=== PATIENT | female | born 1955 | race American Indian/Alaskan Native ===

== ENCOUNTER 2017-07-26 18:43 | Observation (INO) | payer OTHER ==
[2017-07-26] MEDS ORDERED: Oxycodone/Acetaminophen 5/325 mg Tab PO STA (20:02)
[2017-07-26] MEDS ORDERED: Oxycodone/Acetaminophen 5/325 mg Tab ONE (20:13)
--- NOTE | 2017-07-26 21:17 | CT ---
EXAM: CT Head Without Intravenous Contrast CLINICAL HISTORY: 61 years old, female; Injury or trauma; Fall; Initial encounter; Concussion / head injury TECHNIQUE: Axial computed tomography images of the head/brain without intravenous contrast. All CT scans at this facility use one or more dose reduction techniques, viz.: automated exposure control; ma/kV adjustment per patient size (including targeted exams where dose is matched to indication; i.e. head); or iterative reconstruction technique. COMPARISON: No relevant prior studies available. FINDINGS: Brain: Mild cerebral atrophy. Moderate cerebral atrophy. No intracranial hemorrhage. No mass. Senescent calcification of basal ganglia. Minimal decreased attenuation within periventricular white matter. No edema. Ventricles: No hydrocephalus. Bones/joints: No acute fracture. Soft tissues: Unremarkable. Sinuses: Tiny right sphenoid retention cyst. Mastoid air cells: No mastoid effusion. Orbits: Unremarkable as visualized. IMPRESSION: 1. No intracranial hemorrhage. 2. Nonspecific white matter changes. 3. Incidental/non-acute findings are described above.
--- NOTE | 2017-07-26 21:22 | C.PDOC ---
History Of Present Illness <Miriam Bergman - Last Filed: 07/26/17 22:49> <Stanislaw Esparza - Last Filed: 07/29/17 09:07> 61 y/o female presents for evaluation of injuries s/p fall. States she was going from work and fell outside due to uneven sidewalk, onto her right side and hit her right shoulder, right hand, and the right side of the head. Now complaining of pain to these areas. States she felt disoriented after the fall but she can recount the details of the fall. No back pain, neck pain, or other injury. Patient denies any changes in sensation. (Miriam Bergman) - HPI History Per: Patient History/Exam Limitations: no limitations Injury Occurred (Timing): Just Before Arrival <Miriam Bergman - Last Filed: 07/26/17 22:49> <Stanislaw Esparza - Last Filed: 07/29/17 09:07> - HPI Time Seen by Provider: 07/26/17 19:45 Chief Complaint (Nursing): Trauma Past Medical History Reviewed: Historical Data, Nursing Documentation, Vital Signs - Medical History PMH: Diabetes, HTN, Seizures Other Surgeries: Bilateral breast surgery Family History: States: No Known Family Hx - Social History Hx Alcohol Use: No Hx Substance Use: No - Immunization History Hx Tetanus Toxoid Vaccination: Yes Hx Influenza Vaccination: No <Miriam Bergman - Last Filed: 07/26/17 22:49> Vital Signs: Last Vital Signs Temp 97.9 F 07/28/17 07:00 Pulse 53 L 07/28/17 07:47 Resp 18 07/28/17 07:00 BP 116/68 07/28/17 07:00 Pulse Ox 97 07/28/17 07:00 Review Of Systems Except As Marked, All Systems Reviewed And Found Negative. Eyes: Negative for: Vision Change Cardiovascular: Negative for: Chest Pain Respiratory: Negative for: Shortness of Breath Musculoskeletal: Positive for: Shoulder Pain (right), Hand Pain (right). Negative for: Neck Pain, Back Pain Neurological: Positive for: Confusion (after fall), Headache (and pain to right side of head). Negative for: Weakness, Numbness, Incoordination, Change in Speech <Miriam Bergman - Last Filed: 07/26/17 22:49> Physical Exam - Physical Exam Appears: Non-toxic, No Acute Distress Skin: Normal Color, Warm, Dry Head: Atraumatic, Normacephalic, No Abrasion, No Laceration Eye(s): bilateral: Normal Inspection, PERRL, EOMI Ear(s): Bilateral: Normal Oral Mucosa: Moist Neck: Normal ROM, Supple Chest: Symmetrical, No Tenderness Cardiovascular: Rhythm Regular, No Murmur Respiratory: Normal Breath Sounds, No Accessory Muscle Use Gastrointestinal/Abdominal: Soft, No Tenderness, No Distention Back: Normal Inspection, No Vertebral Tenderness, No Paraspinal Tenderness Extremity: Tenderness (to dorsum of right hand, especially 5th digit; also tender to right shoulder), Capillary Refill (is normal), No Deformity, No Swelling (or ecchymosis) Pulses: Left Radial: Normal, Right Radial: Normal Neurological/Psych: Oriented x3, Normal Speech, Normal Cranial Nerves, Normal Motor, Normal Sensation, No Other (neurological deficits) Gait: Steady <Miriam Bergman - Last Filed: 07/26/17 22:49> ED Course And Treatment O2 Sat by Pulse Oximetry: 99 (RA) Pulse Ox Interpretation: Normal - Other Rad x-ray right hand X-Ray: Interpreted by Me, Viewed By Me Interpretation: No fracture, no dislocation x-ray right shoulder X-Ray: Interpreted by Me, Viewed By Me Interpretation: No fracture, no dislocation - CT Scan/US CT head Other Rad Studies (CT/US): Read By Radiologist, Radiology Report Reviewed CT/US Interpretation: FINDINGS: Brain: Mild cerebral atrophy. Moderate cerebral atrophy. No intracranial. hemorrhage. No mass. Senescent calcification of basal ganglia. Minimal. decreased attenuation within periventricular white matter. No edema. Ventricles: No hydrocephalus. Bones/ joints: No acute fracture. Soft tissues: Unremarkable. Sinuses: Tiny right sphenoid retention cyst. Mastoid air cells: No mastoid effusion. Orbits: Unremarkable as visualized. . IMPRESSION: 1. No intracranial hemorrhage. 2. Nonspecific white matter changes. 3. Incidental/non-acute findings are described above. Progress Note: Pending x-rays and CT head. Given 1 tab Percocet in the ED <Miriam Bergman - Last Filed: 07/26/17 22:49> - Laboratory Results Result Diagrams: 07/27/17 07:50 07/27/17 07:50 <Stanislaw Esparza - Last Filed: 07/29/17 09:07> Medical Decision Making <Miriam Bergman - Last Filed: 07/26/17 22:49> <Stanislaw Esparza - Last Filed: 07/29/17 09:07> Medical Decision Making: Upon d/c patient found to be AMS, lethargic drooling. Labs and IVF ordered. Case was signed out to . (Miriam Bergman) pt endorsed to me pending labs after foudn ams. repeat ct added to exclude delayed bleed. labs urnemarkble. pt initially awake, but not oriented. currently orientd x 2. discussed with dr gunter. accepts obs for ams, suspect post concussive (Stanislaw Esparza) Disposition - Disposition Disposition Time: 22:16 <Miriam Bergman - Last Filed: 07/26/17 22:49> <Stanislaw Esparza - Last Filed: 07/29/17 09:07> - Disposition Disposition: HOSPITALIZED Condition: FAIR - Clinical Impression Clinical Impression: Hand contusion, Shoulder sprain, Minor head injury, Altered mental status Critical Care Time - PA / PROPERTY FIELD ADJUSTER / Resident Statement MD/DO has reviewed & agrees with the documentation as recorded. - Scribe Statement The provider has reviewed the documentation as recorded by the Scribe (Fern Ferguson) <Miriam Bergman - Last Filed: 07/26/17 22:49> <Stanislaw Esparza - Last Filed: 07/29/17 09:07> - Scribe Statement All medical record entries made by the Scribe were at my direction and personally dictated by me. I have reviewed the chart and agree that the record accurately reflects my personal performance of the history, physical exam, medical decision making, and the department course for this patient. I have also personally directed, reviewed, and agree with the discharge instructions and disposition. (Miriam Bergman) Physician Patient Turnover Patient Signed Over To: Stanislaw Esparza Handoff Comments: dispo pending <Miriam Bergman - Last Filed: 07/26/17 22:49> Addendum <Miriam Bergman - Last Filed: 07/26/17 22:49> <Stanislaw Esparza - Last Filed: 07/29/17 09:07> Addendum: 07/26/17 23:00 Patient endorsed to me by Miriam Bergman PA-C. Added on CT Head to rule out intracranial process. EKG: Sinus betsy at [address] Abd/Pelvis: FINDINGS: Brain: Mild cerebral atrophy. Moderate cerebellar atrophy. No intracranial hemorrhage. No mass. Senescent calcification of basal ganglia. Minimal decreased attenuation within periventricular white matter. No edema. Ventricles: No hydrocephalus. Bones/joints: No acute fracture. Soft tissues: Unremarkable. Sinuses: Tiny right sphenoid retention cyst. Mastoid air cells: No mastoid effusion. Orbits: Unremarkable as visualized. IMPRESSION: 1. No intracranial hemorrhage. 2. Nonspecific white matter changes. 3. Incidental/non-acute findings are described above. Thank you for allowing us to participate in the care of your patient. Dictated and Authenticated by: José Miguel Garcia MD 07/27/2017 12:27 AM Eastern Time ([place] & [place]) (Stanislaw Esparza)
[2017-07-26] MEDS ORDERED: Sodium Chloride 0.9% 1,000 ML IV STA (22:32)
[2017-07-26] MEDS ORDERED: Sodium Chloride 0.9% 1,000 ML ONE (23:11)
[2017-07-26 23:32] LABS: BASO % 1.2 % (0.0-2.0); EOS # 0.1 K/uL (0.0-0.7); EOS % 2.3 % (0.0-4.0); HEMOGLOBIN 12.7 g/dL (11.0-16.0); LYMPH % 49.5 % (20.0-40.0); MEAN CELL VOLUME 95.7 fL (81.0-99.0); MEAN CORPUSCULAR HEMOGLOBIN 32.9 pg (27.0-31.0); MEAN CORPUSCULAR HGB CONC 34.4 g/dL (33.0-37.0); MEAN PLATELET VOLUME 7.1 fL (7.2-11.7); MONO # 0.4 K/uL (0.0-0.8); MONO % 9.6 % (0.0-10.0); NEUT # 1.5 K/uL (1.8-7.0); NEUT % 37.4 % (50.0-75.0); RBC 3.87 Mil/uL (3.80-5.20); RED CELL DISTRIBUTION WIDTH 13.8 % (11.5-14.5); WHITE BLOOD COUNT 4.1 K/uL (4.8-10.8)
[2017-07-26 23:39] LABS: INR 1.1; PROTHROMBIN TIME 11.9 SECONDS (9.7-12.2)
[2017-07-26 23:45] LABS: ALB/GLOB RATIO 1.3 (1.0-2.1); ALBUMIN 4.2 g/dL (3.5-5.0); ALT/SGPT 27 U/L (9-52); AST/SGOT 26 U/L (14-36); BLOOD UREA NITROGEN 16 mg/dL (7-17); CALCIUM 9.1 mg/dl (8.6-10.4); GFR AFRICAN-AMERICAN > 60; GFR NON-AFRICAN AMERICAN > 60
[2017-07-26] MEDS ORDERED: Potassium Chloride 20 mEq ER Tab PO STA (23:46)
[2017-07-26] MEDS ORDERED: Potassium Chloride 20 mEq ER Tab PO ONE (23:51)
[2017-07-26 23:54] LABS: CK-MB 1.31 ng/mL (0.0-3.38)
--- NOTE | 2017-07-27 00:27 | CT ---
EXAM: CT Head Without Intravenous Contrast CLINICAL HISTORY: 61 years old, female; Pain; Headache and other: Fall; Patient HX: 07-26-17 images sent; Additional info: AMS trauma R/O delayed bleed TECHNIQUE: Axial computed tomography images of the head/brain without intravenous contrast. All CT scans at this facility use one or more dose reduction techniques, viz.: automated exposure control; ma/kV adjustment per patient size (including targeted exams where dose is matched to indication; i.e. head); or iterative reconstruction technique. Coronal and sagittal reformatted images were created and reviewed. COMPARISON: CT - HEAD W/O CONTRAST 2017-07-26 21:08 FINDINGS: Brain: Mild cerebral atrophy. Moderate cerebellar atrophy. No intracranial hemorrhage. No mass. Senescent calcification of basal ganglia. Minimal decreased attenuation within periventricular white matter. No edema. Ventricles: No hydrocephalus. Bones/joints: No acute fracture. Soft tissues: Unremarkable. Sinuses: Tiny right sphenoid retention cyst. Mastoid air cells: No mastoid effusion. Orbits: Unremarkable as visualized. IMPRESSION: 1. No intracranial hemorrhage. 2. Nonspecific white matter changes. 3. Incidental/non-acute findings are described above.
[2017-07-27] MEDS ORDERED: Glucagon Recombinant 1 mg Inj IM PRN (01:30)
[2017-07-27] MEDS ORDERED: Dextrose 50% SYRINGE Inj (50 ml) IV PRN (01:30)
--- NOTE | 2017-07-27 01:39 | CP.PCM.HP ---
<Alysha Garland - Last Filed: 07/27/17 01:51> History of Present Illness - History of Present Illness History of Present Illness: HPI: 61 year old female with past medical history of seizure disorder, HTN, DM type II presents to the ER s/p fall. Patient states she was walking to the bus stop after work when she hit her foot on the uneven pavement and she fell facing forward. She states she did hit her head and shoulder. She states she does not recall the exact way that she fell. She states she did not lose consciousness but did feel groggy. She denies feeling lightheaded, dizzy, change of vision or change in balance at the time of the fall. She states she took a taxi to the ER because someone told her there are no ambulance to the hospital. She states this has happened before about 2 weeks ago as she was again walking to the bus stop and tripped on the uneven pavement but at that time she did not hit her head. She states she currently has a headache and right shoulder pain. She denies chest pain, palpitations, dizziness, nausea or vomiting. 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 Currently denies alcohol and illicit drug use. Present on Admission - Present on Admission Any Indicators Present on Admission: No Review of Systems - Constitutional Constitutional: Headache. absent: Chills, Fever - EENT Eyes: absent: Change in Vision Ears: absent: Dizziness - Cardiovascular Cardiovascular: absent: Chest Pain, Dyspnea - Respiratory Respiratory: absent: Dyspnea - Gastrointestinal Gastrointestinal: absent: Constipation, Diarrhea, Nausea, Vomiting - Genitourinary Genitourinary: absent: Dysuria - Musculoskeletal Musculoskeletal: Other (right shoulder pain ) Past Patient History - Past Social History Smoking Status: Never Smoked - CARDIAC Hx Hypertension: Yes - NEUROLOGICAL Hx Seizures: Yes - ENDOCRINE/METABOLIC Hx Diabetes Mellitus Type 1: Yes Hx Diabetes Mellitus Type 2: Yes - PSYCHIATRIC Hx Substance Use: No - SURGICAL HISTORY Other/Comment: BL BREAST SURGERY Meds Home Medications: Home Medication List Medication Instructions Recorded Confirmed Type traMADol [Ultram] 50 mg PO Q6 #20 tab 07/26/17 Rx Allergies/Adverse Reactions: Allergies Allergy/AdvReac Type Severity Reaction Status Date / Time Penicillins Allergy SHORTNESS Verified 07/26/17 20:00 OF BREATH Physical Exam - Constitutional Appears: No Acute Distress Additional comments: Patient appears to be groggy. She has to pause and think after each question that was asked. - Head Exam Head Exam: ATRAUMATIC, NORMAL INSPECTION - Eye Exam Eye Exam: EOMI, Normal appearance - ENT Exam ENT Exam: Mucous Membranes Dry - Respiratory Exam Respiratory Exam: Clear to Auscultation Bilateral, NORMAL BREATHING PATTERN - Cardiovascular Exam Cardiovascular Exam: REGULAR RHYTHM, +S1, +S2. absent: JVD, RRR - GI/Abdominal Exam GI & Abdominal Exam: Normal Bowel Sounds, Soft. absent: Distended, Firm, Tenderness - Extremities Exam Extremities exam: Positive for: normal inspection, pedal pulses present. Negative for: pedal edema, tenderness Additional comments: Right 5th digit tenderness - Expanded Upper Extremities Exam Right Shoulder exam: tenderness. absent: abrasion, erythema, full ROM (decreased range of motion ), laceration, swelling - Neurological Exam Neurological exam: Alert, CN II-XII Intact, Oriented x3 - Expanded Neurological Exam Expanded Patient oriented to: person, place, time Sensory exam: Lower Extremity Light Touch: Normal, Upper Extremity Light Touch: Normal Neuro motor strength exam: Left Upper Extremity: 5, Right Upper Extremity: 5, Left Lower Extremity: 5, Right Lower Extremity: 4 Coma Scale Eye Opening: SPONTANEOUS Coma Scale Motor Response: OBEYS COMMANDS - Psychiatric Exam Psychiatric exam: Normal Affect, Normal Mood - Skin Skin Exam: Dry, Intact, Normal Color Results - Vital Signs Recent Vital Signs: Last Vital Signs Temp 98.8 F 07/27/17 00:38 Pulse 70 07/27/17 00:38 Resp 18 07/27/17 00:38 BP 146/90 07/27/17 00:38 Pulse Ox 100 07/27/17 00:38 - Labs Result Diagrams: 07/26/17 23:27 07/26/17 23:27 Labs: Laboratory Results - last 24 hr 07/26/17 07/26/17 07/26/17 22:30 23:27 23:27 WBC 4.1 L RBC 3.87 Hgb 12.7 Hct 37.0 MCV 95.7 MCH 32.9 H MCHC 34.4 RDW 13.8 Plt Count 284 MPV 7.1 L Neut % (Auto) 37.4 L Lymph % (Auto) 49.5 H Johnson % (Auto) 9.6 Eos % (Auto) 2.3 Baso % (Auto) 1.2 Neut # (Auto) 1.5 L Lymph # (Auto) 2.0 Johnson # (Auto) 0.4 Eos # (Auto) 0.1 Baso # (Auto) 0.0 PT INR APTT Sodium 140 Potassium 3.2 L Chloride 97 L Carbon Dioxide 28 Anion Gap 18 BUN 16 Creatinine 0.6 L Est GFR ( Amer) > 60 Est GFR (Non-Af Amer) > 60 POC Glucose (mg/dL) 96 Random Glucose 93 Calcium 9.1 Total Bilirubin 0.3 AST 26 ALT 27 Alkaline Phosphatase 124 Total Creatine Kinase 102 CK-MB (Mass) 1.31 Troponin I < 0.0120 Total Protein 7.4 Albumin 4.2 Globulin 3.2 Albumin/Globulin Ratio 1.3 07/26/17 23:27 WBC RBC Hgb Hct MCV MCH MCHC RDW Plt Count MPV Neut % (Auto) Lymph % (Auto) Johnson % (Auto) Eos % (Auto) Baso % (Auto) Neut # (Auto) Lymph # (Auto) Johnson # (Auto) Eos # (Auto) Baso # (Auto) PT 11.9 INR 1.1 APTT 27 Sodium Potassium Chloride Carbon Dioxide Anion Gap BUN Creatinine Est GFR ( Amer) Est GFR (Non-Af Amer) POC Glucose (mg/dL) Random Glucose Calcium Total Bilirubin AST ALT Alkaline Phosphatase Total Creatine Kinase CK-MB (Mass) Troponin I Total Protein Albumin Globulin Albumin/Globulin Ratio Assessment & Plan - Assessment and Plan (Free Text) Assessment: 1.) Near Syncope s/p fall - Head CT:No intracranial hemorrhage. Nonspecific white matter changes. Incidental/non-acute findings are described above. - EKG: Sinus Bradycardia - Trop Negative - f/u Brain MRI w/o contrast - f/u UDS - Neuro checks - Neuro Consult: Dr. Calderon --> help appreciated 2.) History of Seizure Disorder - f/u Phenytoin Level - Confirm dosage of patient's home medication - Phenytoin - Neuro Consult: Dr. Calderon --> help appreciated 3.) Leukopenia - WBC 4.1 - f/u HIV - f/u Hep Panel 4.) Right Shoulder Tenderness - f/u x-ray Shoulder xray - PT/OT 5.) Right 5th Digit Tenderness - f/u Hand xray - PT/OT 6.) History of HTN - Confirm dosage of patient's home medication - Benazepril - f/u TSH, free T4 7.) History of DM Type II - Accuchecks - ISS - Hypoglycemia Protocol - f/u hA1c - f/u Lipid Panel 8.) Prophylaxis - Neurochecks - SCDs - PT/OT eval and treat Case Discussed with Dr. Anushka Garland PGY-1 <Sudhakar Reveles - Last Filed: 07/27/17 06:33> Results - Vital Signs Recent Vital Signs: Last Vital Signs Temp 98.1 F 07/27/17 03:06 Pulse 74 07/27/17 03:06 Resp 20 07/27/17 03:06 BP 161/89 H 07/27/17 03:06 Pulse Ox 100 07/27/17 03:06 - Labs Result Diagrams: 07/26/17 23:27 07/26/17 23:27 Labs: Laboratory Results - last 24 hr 07/26/17 07/26/17 07/26/17 22:30 23:27 23:27 WBC 4.1 L RBC 3.87 Hgb 12.7 Hct 37.0 MCV 95.7 MCH 32.9 H MCHC 34.4 RDW 13.8 Plt Count 284 MPV 7.1 L Neut % (Auto) 37.4 L Lymph % (Auto) 49.5 H Johnson % (Auto) 9.6 Eos % (Auto) 2.3 Baso % (Auto) 1.2 Neut # (Auto) 1.5 L Lymph # (Auto) 2.0 Johnson # (Auto) 0.4 Eos # (Auto) 0.1 Baso # (Auto) 0.0 PT INR APTT Sodium 140 Potassium 3.2 L Chloride 97 L Carbon Dioxide 28 Anion Gap 18 BUN 16 Creatinine 0.6 L Est GFR ( Amer) > 60 Est GFR (Non-Af Amer) > 60 POC Glucose (mg/dL) 96 Random Glucose 93 Calcium 9.1 Total Bilirubin 0.3 AST 26 ALT 27 Alkaline Phosphatase 124 Total Creatine Kinase 102 CK-MB (Mass) 1.31 Troponin I < 0.0120 Total Protein 7.4 Albumin 4.2 Globulin 3.2 Albumin/Globulin Ratio 1.3 Urine Color Urine Clarity Urine pH Ur Specific Tinnie Urine Protein Urine Glucose (UA) Urine Ketones Urine Blood Urine Nitrate Urine Bilirubin Urine Urobilinogen Ur Leukocyte Esterase Urine WBC (Auto) Ur Squamous Epith Cells Urine Opiates Screen Urine Methadone Screen Ur Barbiturates Screen Ur Phencyclidine Scrn Ur Amphetamines Screen U Benzodiazepines Scrn U Oth Cocaine Metabols U Cannabinoids Screen 07/26/17 07/27/17 07/27/17 23:27 02:19 02:19 WBC RBC Hgb Hct MCV MCH MCHC RDW Plt Count MPV Neut % (Auto) Lymph % (Auto) Johnson % (Auto) Eos % (Auto) Baso % (Auto) Neut # (Auto) Lymph # (Auto) Johnson # (Auto) Eos # (Auto) Baso # (Auto) PT 11.9 INR 1.1 APTT 27 Sodium Potassium Chloride Carbon Dioxide Anion Gap BUN Creatinine Est GFR ( Amer) Est GFR (Non-Af Amer) POC Glucose (mg/dL) Random Glucose Calcium Total Bilirubin AST ALT Alkaline Phosphatase Total Creatine Kinase CK-MB (Mass) Troponin I Total Protein Albumin Globulin Albumin/Globulin Ratio Urine Color Straw Urine Clarity Clear Urine pH 6.0 Ur Specific Tinnie 1.012 Urine Protein Negative Urine Glucose (UA) Normal Urine Ketones Negative Urine Blood Negative Urine Nitrate Negative Urine Bilirubin Negative Urine Urobilinogen Normal Ur Leukocyte Esterase Neg Urine WBC (Auto) < 1 Ur Squamous Epith Cells 1 Urine Opiates Screen Positive H Urine Methadone Screen Negative Ur Barbiturates Screen Negative Ur Phencyclidine Scrn Negative Ur Amphetamines Screen Negative U Benzodiazepines Scrn Negative U Oth Cocaine Metabols Negative U Cannabinoids Screen Negative 07/27/17 06:01 WBC RBC Hgb Hct MCV MCH MCHC RDW Plt Count MPV Neut % (Auto) Lymph % (Auto) Johnson % (Auto) Eos % (Auto) Baso % (Auto) Neut # (Auto) Lymph # (Auto) Johnson # (Auto) Eos # (Auto) Baso # (Auto) PT INR APTT Sodium Potassium Chloride Carbon Dioxide Anion Gap BUN Creatinine Est GFR ( Amer) Est GFR (Non-Af Amer) POC Glucose (mg/dL) 83 Random Glucose Calcium Total Bilirubin AST ALT Alkaline Phosphatase Total Creatine Kinase CK-MB (Mass) Troponin I Total Protein Albumin Globulin Albumin/Globulin Ratio Urine Color Urine Clarity Urine pH Ur Specific Tinnie Urine Protein Urine Glucose (UA) Urine Ketones Urine Blood Urine Nitrate Urine Bilirubin Urine Urobilinogen Ur Leukocyte Esterase Urine WBC (Auto) Ur Squamous Epith Cells Urine Opiates Screen Urine Methadone Screen Ur Barbiturates Screen Ur Phencyclidine Scrn Ur Amphetamines Screen U Benzodiazepines Scrn U Oth Cocaine Metabols U Cannabinoids Screen Assessment & Plan - Date & Time Date: 07/27/17 (I have seen and examined the patient. I agree with the findings and plan of care as documented by Dr. Garland. Patient with change in mental status and pre syncope. CT head negative. Check MRI brain. Consult to neuro. Neurochecks. History of seizures. Check phenytoin level. Continue home meds. Fall precautions. Monitor for acute changes.) Time: 06:30 Attending/Attestation - Attestation I have personally seen and examined this patient.: Yes I have fully participated in the care of the patient.: Yes I have reviewed all pertinent clinical information: Yes
[2017-07-27 02:27] LABS: SQUAMOUS EPITHIAL 1 /hpf (0-5); URINE BILIRUBIN NEGATIVE (NEGATIVE); URINE BLOOD NEGATIVE (NEGATIVE); URINE CLARITY Clear (Clear); URINE COLOR Straw (YELLOW); URINE GLUCOSE (UA) NORMAL (Normal); URINE LEUKOCYTE ESTERASE NEG Leu/uL (Negative); URINE PROTEIN NEGATIVE (NEGATIVE); URINE UROBILINOGEN NORMAL mg/dL (0.2-1.0)
[2017-07-27 02:40] LABS: BARBITURATES, UR NEGATIVE (NEGATIVE); BENZODIAZEPINES, UR NEGATIVE (NEGATIVE); PHENCYCLIDINE, UR NEGATIVE (NEGATIVE)
[2017-07-27 02:41] LABS: OPIATES, UR POSITIVE (NEGATIVE)
[2017-07-27] MEDS ORDERED: Valproate 500 MG in Sodium Chloride 0.9% 100 ML IVPB ONE (07:00)
[2017-07-27 07:47] VITALS: RESP 18
[2017-07-27] MEDS: Magnesium Sulfate 1 gm in D5W 1 GM/100 ML BAG IVPB SCH ×2 (08:00→10:52)
[2017-07-27 08:11] LABS: BASO % 1.1 % (0.0-2.0); EOS # 0.1 K/uL (0.0-0.7); EOS % 1.8 % (0.0-4.0); LYMPH # 1.3 K/uL (1.0-4.3); LYMPH % 43.5 % (20.0-40.0); MEAN CELL VOLUME 95.8 fL (81.0-99.0); MEAN CORPUSCULAR HGB CONC 34.5 g/dL (33.0-37.0); MEAN PLATELET VOLUME 7.2 fL (7.2-11.7); MONO # 0.3 K/uL (0.0-0.8); MONO % 9.1 % (0.0-10.0); NEUT # 1.4 K/uL (1.8-7.0); NEUT % 44.5 % (50.0-75.0); NRBC % 0.1 % (0.0-2.0); RBC 3.63 Mil/uL (3.80-5.20); RED CELL DISTRIBUTION WIDTH 13.7 % (11.5-14.5)
--- NOTE | 2017-07-27 08:34 | RAD ---
PROCEDURE: Radiographs of the Right Shoulder HISTORY: fall COMPARISON: No prior. FINDINGS: BONES: No acute fracture. JOINTS: Glenohumeral acromioclavicular degenerative change. SOFT TISSUES: Normal. OTHER FINDINGS: None. IMPRESSION: No demonstrated fracture or dislocation.
--- NOTE | 2017-07-27 08:35 | RAD ---
PROCEDURE: Right Hand Radiographs. HISTORY: fall COMPARISON: None. FINDINGS: BONES: No acute fractured. JOINTS: Unremarkable. SOFT TISSUES: Normal. OTHER FINDINGS: None. IMPRESSION: No demonstrated fracture or dislocation.
[2017-07-27 08:38] LABS: ALB/GLOB RATIO 1.1 (1.0-2.1); ALBUMIN 3.4 g/dL (3.5-5.0); ALT/SGPT 20 U/L (9-52); AST/SGOT 22 U/L (14-36); BLOOD UREA NITROGEN 11 mg/dL (7-17); CALCIUM 8.8 mg/dl (8.6-10.4); GFR AFRICAN-AMERICAN > 60; GFR NON-AFRICAN AMERICAN > 60; HDL CHOLESTEROL 50 mg/dL (30-70)
[2017-07-27] MEDS: (Novolin R) Insulin Human Regular 100 units/ml vial SC SCH ×4 (08:44→21:49)
[2017-07-27 08:48] LABS: LDL CHOLESTEROL 99 mg/dL (0-129)
[2017-07-27 09:02] LABS: HEPATITIS B SURFACE AG Negative (NEGATIVE)
[2017-07-27 09:09] LABS: HEPATITIS A IGM NEGATIVE (NEGATIVE); HEPATITIS B CORE AB NEGATIVE (NEGATIVE)
[2017-07-27 09:19] LABS: HEPATITIS C ANTIBODY NEGATIVE (NEGATIVE)
[2017-07-27] MEDS ORDERED: Magnesium Sulfate 1 gm in D5W 1 GM/100 ML BAG IVPB SCH (11:00)
--- NOTE | 2017-07-27 14:37 | MRI ---
PROCEDURE: MRI BRAIN WITHOUT CONTRAST HISTORY: near syncope; s/p fall COMPARISON: None. TECHNIQUE: Multiplanar, multisequence MR images of the brain were obtained without intravenous contrast enhancement. FINDINGS: HEMORRHAGE: None DWI: No evidence of an acute or early subacute infarction. BRAIN PARENCHYMA: Diffuse cerebral atrophy and trace chronic microangiopathy are reiterated. There is a likely arachnoid cyst at the sella/inferior suprasellar cistern region. No mass is identified or suspicious extra-axial fluid collection in the midline brain and appears diffusely unremarkable nevertheless. Posterior fossa contents remain unremarkable including the brainstem. VENTRICLES: Unremarkable. No hydrocephalus. CRANIUM: Unremarkable. ORBITS: Grossly unremarkable. PARANASAL SINUSES/MASTOIDS: Clear VASCULAR SYSTEM: Skull base flow voids intact. OTHER FINDINGS: None. 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
--- NOTE | 2017-07-27 14:40 | MRI ---
PROCEDURE: Magnetic Resonance Angiography Brain HISTORY: seizure COMPARISON: None available. TECHNIQUE: 3D time of flight MR angiography of the intracranial arteries was performed. Rotating maximum intensity projection images were generated. FINDINGS: INTERNAL CAROTID ARTERIES: Unremarkable. The skull base, petrous, cavernous and supraclinoid segments are bilaterally widely patient. ANTERIOR CEREBRAL ARTERIES: Unremarkable. A1 and A2 segments are widely patent. Smaller distal branches unremarkable, as visualized. MIDDLE CEREBRAL ARTERIES: Unremarkable. M1 and M2 segments are widely patent. Perisylvian branches grossly symmetric. POSTERIOR CIRCULATION: Basilar Artery: Unremarkable. Distal Vertebral Arteries: Unremarkable. Posterior Cerebral Arteries: Unremarkable. Posterior Inferior Cerebellar Arteries: Unremarkable. ANEURYSM/ VASCULAR MALFORMATIONS: None. OTHER FINDINGS: None. IMPRESSION: Unremarkable MR angiography of the brain.
--- NOTE | 2017-07-27 16:17 | CP.PCM.CON ---
History of Present Illness - History of Present Illness History of Present Illness: Neurology Consultation Note: Mrs. Henderson is a 61-year-old woman with a past medical history of seizure disorder, HTN, DM type II presented to the ED yesterday after she had a mechanical fall, during which she hit her foot on uneven pavement, tripped and fell. There was no LOC, no abnormal movements, but she had headache ache should pain due to site of injury. CT and MRI of the brain did not show any concerning lesions. She was treated for headache. Neurology was consulted to assist with the management and care. Review of Systems - Review of Systems All systems: reviewed and no additional remarkable complaints except Past Patient History - Past Social History Smoking Status: Never Smoked - CARDIAC Hx Hypertension: Yes - NEUROLOGICAL Hx Seizures: Yes - ENDOCRINE/METABOLIC Hx Diabetes Mellitus Type 1: Yes Hx Diabetes Mellitus Type 2: Yes - PSYCHIATRIC Hx Substance Use: No - SURGICAL HISTORY Other/Comment: BL BREAST SURGERY Meds Home Medications: Home Medication List Medication Instructions Recorded Confirmed Type traMADol [Ultram] 50 mg PO Q6 #20 tab 07/26/17 Rx Allergies/Adverse Reactions: Allergies Allergy/AdvReac Type Severity Reaction Status Date / Time Penicillins Allergy SHORTNESS Verified 07/26/17 20:00 OF BREATH - Medications Medications: Current Medications Dextrose (Dextrose 50% Inj) 0 ml IV STAT PRN; Protocol PRN Reason: Hypoglycemia Protocol Dextrose (Glutose 15) 0 gm PO ONCE PRN; Protocol PRN Reason: Hypoglycemia Protocol Glucagon (Glucagen Diagnostic Kit) 0 mg IM STAT PRN; Protocol PRN Reason: Hypoglycemia Protocol Dextrose (Dextrose 5% In Water 1000 Ml) 1,000 mls @ 0 mls/hr IV .Q0M PRN; Protocol; Per Protocol PRN Reason: Hypoglycemia Protocol Insulin Human Regular (Novolin R) 0 unit SC ACHS [facility] PRN Reason: Protocol Last Admin: 07/27/17 11:51 Dose: Not Given Lisinopril (Zestril) 10 mg PO DAILY [facility] Last Admin: 07/27/17 10:50 Dose: 10 mg Physical Exam - Constitutional Appears: Well - Head Exam Head Exam: ATRAUMATIC, NORMAL INSPECTION, NORMOCEPHALIC - Eye Exam Eye Exam: Conjunctival injection - Respiratory Exam Respiratory Exam: Clear to Auscultation Bilateral, NORMAL BREATHING PATTERN - Cardiovascular Exam Cardiovascular Exam: REGULAR RHYTHM - GI/Abdominal Exam GI & Abdominal Exam: Normal Bowel Sounds, Soft. absent: Tenderness - Neurological Exam Neurological exam: Alert, CN II-XII Intact, Normal Gait, Oriented x3, Reflexes Normal Additional comments: Slightly somnolent, but AAOX3. Results - Vital Signs Recent Vital Signs: Last Vital Signs Temp 98.3 F 07/27/17 07:06 Pulse 66 07/27/17 12:22 Resp 18 07/27/17 07:06 BP 136/95 H 07/27/17 10:40 Pulse Ox 67 L 07/27/17 12:22 - Labs Result Diagrams: 07/27/17 07:50 07/27/17 07:50 Labs: Laboratory Results - last 24 hr 07/26/17 07/26/17 07/26/17 22:30 23:27 23:27 WBC 4.1 L RBC 3.87 Hgb 12.7 Hct 37.0 MCV 95.7 MCH 32.9 H MCHC 34.4 RDW 13.8 Plt Count 284 MPV 7.1 L Neut % (Auto) 37.4 L Lymph % (Auto) 49.5 H [place] % (Auto) 9.6 Eos % (Auto) 2.3 Baso % (Auto) 1.2 Neut # (Auto) 1.5 L Lymph # (Auto) 2.0 [place] # (Auto) 0.4 Eos # (Auto) 0.1 Baso # (Auto) 0.0 PT INR APTT Sodium 140 Potassium 3.2 L Chloride 97 L Carbon Dioxide 28 Anion Gap 18 BUN 16 Creatinine 0.6 L Est GFR ( Amer) > 60 Est GFR (Non-Af Amer) > 60 POC Glucose (mg/dL) 96 Random Glucose 93 Hemoglobin A1c Calcium 9.1 Phosphorus Magnesium Total Bilirubin 0.3 AST 26 ALT 27 Alkaline Phosphatase 124 Total Creatine Kinase 102 CK-MB (Mass) 1.31 Troponin I < 0.0120 Total Protein 7.4 Albumin 4.2 Globulin 3.2 Albumin/Globulin Ratio 1.3 Triglycerides Cholesterol LDL Cholesterol Direct HDL Cholesterol Free T4 TSH 3rd Generation Urine Color Urine Clarity Urine pH Ur Specific [place] Urine Protein Urine Glucose (UA) Urine Ketones Urine Blood Urine Nitrate Urine Bilirubin Urine Urobilinogen Ur Leukocyte Esterase Urine WBC (Auto) Ur Squamous Epith Cells Urine Opiates Screen Urine Methadone Screen Ur Barbiturates Screen Ur Phencyclidine Scrn Ur Amphetamines Screen U Benzodiazepines Scrn U Oth Cocaine Metabols U Cannabinoids Screen Hepatitis A IgM Ab Hep Bs Antigen Hep B Core IgM Ab Hepatitis C Antibody HIV 1&2 Antibody Screen 07/26/17 07/27/17 07/27/17 23:27 02:19 02:19 WBC RBC Hgb Hct MCV MCH MCHC RDW Plt Count MPV Neut % (Auto) Lymph % (Auto) [place] % (Auto) Eos % (Auto) Baso % (Auto) Neut # (Auto) Lymph # (Auto) [place] # (Auto) Eos # (Auto) Baso # (Auto) PT 11.9 INR 1.1 APTT 27 Sodium Potassium Chloride Carbon Dioxide Anion Gap BUN Creatinine Est GFR ( Amer) Est GFR (Non-Af Amer) POC Glucose (mg/dL) Random Glucose Hemoglobin A1c Calcium Phosphorus Magnesium Total Bilirubin AST ALT Alkaline Phosphatase Total Creatine Kinase CK-MB (Mass) Troponin I Total Protein Albumin Globulin Albumin/Globulin Ratio Triglycerides Cholesterol LDL Cholesterol Direct HDL Cholesterol Free T4 TSH 3rd Generation Urine Color Straw Urine Clarity Clear Urine pH 6.0 Ur Specific [place] 1.012 Urine Protein Negative Urine Glucose (UA) Normal Urine Ketones Negative Urine Blood Negative Urine Nitrate Negative Urine Bilirubin Negative Urine Urobilinogen Normal Ur Leukocyte Esterase Neg Urine WBC (Auto) < 1 Ur Squamous Epith Cells 1 Urine Opiates Screen Positive H Urine Methadone Screen Negative Ur Barbiturates Screen Negative Ur Phencyclidine Scrn Negative Ur Amphetamines Screen Negative U Benzodiazepines Scrn Negative U Oth Cocaine Metabols Negative U Cannabinoids Screen Negative Hepatitis A IgM Ab Hep Bs Antigen Hep B Core IgM Ab Hepatitis C Antibody HIV 1&2 Antibody Screen 07/27/17 07/27/17 07/27/17 06:01 07:50 07:50 WBC 3.0 L RBC 3.63 L Hgb 12.0 Hct 34.8 MCV 95.8 MCH 33.0 H MCHC 34.5 RDW 13.7 Plt Count 293 MPV 7.2 Neut % (Auto) 44.5 L Lymph % (Auto) 43.5 H [place] % (Auto) 9.1 Eos % (Auto) 1.8 Baso % (Auto) 1.1 Neut # (Auto) 1.4 L Lymph # (Auto) 1.3 [place] # (Auto) 0.3 Eos # (Auto) 0.1 Baso # (Auto) 0.0 PT INR APTT Sodium 139 Potassium 3.7 Chloride 105 Carbon Dioxide 26 Anion Gap 13 BUN 11 Creatinine 0.5 L Est GFR ( Amer) > 60 Est GFR (Non-Af Amer) > 60 POC Glucose (mg/dL) 83 Random Glucose 88 Hemoglobin A1c Calcium 8.8 Phosphorus 3.5 Magnesium 1.9 Total Bilirubin 0.3 AST 22 ALT 20 Alkaline Phosphatase 111 Total Creatine Kinase CK-MB (Mass) Troponin I Total Protein 6.4 Albumin 3.4 L Globulin 3.0 Albumin/Globulin Ratio 1.1 Triglycerides 50 Cholesterol 182 LDL Cholesterol Direct 99 HDL Cholesterol 50 Free T4 TSH 3rd Generation 0.35 L Urine Color Urine Clarity Urine pH Ur Specific [place] Urine Protein Urine Glucose (UA) Urine Ketones Urine Blood Urine Nitrate Urine Bilirubin Urine Urobilinogen Ur Leukocyte Esterase Urine WBC (Auto) Ur Squamous Epith Cells Urine Opiates Screen Urine Methadone Screen Ur Barbiturates Screen Ur Phencyclidine Scrn Ur Amphetamines Screen U Benzodiazepines Scrn U Oth Cocaine Metabols U Cannabinoids Screen Hepatitis A IgM Ab Hep Bs Antigen Hep B Core IgM Ab Hepatitis C Antibody HIV 1&2 Antibody Screen 07/27/17 07/27/17 07/27/17 07:50 07:50 07:50 WBC RBC Hgb Hct MCV MCH MCHC RDW Plt Count MPV Neut % (Auto) Lymph % (Auto) [place] % (Auto) Eos % (Auto) Baso % (Auto) Neut # (Auto) Lymph # (Auto) [place] # (Auto) Eos # (Auto) Baso # (Auto) PT INR APTT Sodium Potassium Chloride Carbon Dioxide Anion Gap BUN Creatinine Est GFR ( Amer) Est GFR (Non-Af Amer) POC Glucose (mg/dL) Random Glucose Hemoglobin A1c 5.9 Calcium Phosphorus Magnesium Total Bilirubin AST ALT Alkaline Phosphatase Total Creatine Kinase CK-MB (Mass) Troponin I Total Protein Albumin Globulin Albumin/Globulin Ratio Triglycerides Cholesterol LDL Cholesterol Direct HDL Cholesterol Free T4 1.55 TSH 3rd Generation Urine Color Urine Clarity Urine pH Ur Specific [place] Urine Protein Urine Glucose (UA) Urine Ketones Urine Blood Urine Nitrate Urine Bilirubin Urine Urobilinogen Ur Leukocyte Esterase Urine WBC (Auto) Ur Squamous Epith Cells Urine Opiates Screen Urine Methadone Screen Ur Barbiturates Screen Ur Phencyclidine Scrn Ur Amphetamines Screen U Benzodiazepines Scrn U Oth Cocaine Metabols U Cannabinoids Screen Hepatitis A IgM Ab Negative Hep Bs Antigen Negative Hep B Core IgM Ab Negative Hepatitis C Antibody Negative HIV 1&2 Antibody Screen 07/27/17 07/27/17 07/27/17 07:50 09:55 11:16 WBC RBC Hgb Hct MCV MCH MCHC RDW Plt Count MPV Neut % (Auto) Lymph % (Auto) [place] % (Auto) Eos % (Auto) Baso % (Auto) Neut # (Auto) Lymph # (Auto) [place] # (Auto) Eos # (Auto) Baso # (Auto) PT INR APTT Sodium Potassium Chloride Carbon Dioxide Anion Gap BUN Creatinine Est GFR ( Amer) Est GFR (Non-Af Amer) POC Glucose (mg/dL) 150 H Random Glucose Hemoglobin A1c Calcium Phosphorus Magnesium Total Bilirubin AST ALT Alkaline Phosphatase Total Creatine Kinase CK-MB (Mass) Troponin I Total Protein Albumin Globulin Albumin/Globulin Ratio Triglycerides Cholesterol LDL Cholesterol Direct HDL Cholesterol Free T4 1.22 TSH 3rd Generation Urine Color Urine Clarity Urine pH Ur Specific [place] Urine Protein Urine Glucose (UA) Urine Ketones Urine Blood Urine Nitrate Urine Bilirubin Urine Urobilinogen Ur Leukocyte Esterase Urine WBC (Auto) Ur Squamous Epith Cells Urine Opiates Screen Urine Methadone Screen Ur Barbiturates Screen Ur Phencyclidine Scrn Ur Amphetamines Screen U Benzodiazepines Scrn U Oth Cocaine Metabols U Cannabinoids Screen Hepatitis A IgM Ab Hep Bs Antigen Hep B Core IgM Ab Hepatitis C Antibody HIV 1&2 Antibody Screen Negative Assessment & Plan (1) Minor head injury Assessment and Plan: There is no concern based on CT and MRI. The patient complains of a headache, that is resolving. No seizures were reported. No reason to change medications. No further recommendations from a neurological standpoint. Thank you. Status: Acute Priority: High
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
[2017-07-28] MEDS: (Novolin R) Insulin Human Regular 100 units/ml vial SC SCH ×2 (07:16→12:03)
[2017-07-28 11:16] VITALS: BP 116/68; PULSE 53; TEMP 97.9; O2SAT 97
--- NOTE | 2017-07-28 14:37 | CARD ---
APPROVED REPORT EKG Measurement Heart [id number] <Conclusion> Sinus bradycardia Possible Left atrial enlargement Septal infarct, age undetermined Abnormal ECG
--- NOTE | 2017-07-28 18:10 | CP.PCM.DIS ---
Provider - Provider Date of Admission: 07/27/17 00:30 Attending physician: Betsy Simpson DO Consults: Neuro - Korya Time Spent in preparation of Discharge (in minutes): 30 Hospital Course - Lab Results Lab Results: Most Recent Lab Values WBC 3.0 K/uL (4.8-10.8) L 07/27/17 07:50 RBC 3.63 Mil/uL (3.80-5.20) L 07/27/17 07:50 Hgb 12.0 g/dL (11.0-16.0) 07/27/17 07:50 Hct 34.8 % (34.0-47.0) 07/27/17 07:50 MCV 95.8 fL (81.0-99.0) 07/27/17 07:50 MCH 33.0 pg (27.0-31.0) H 07/27/17 07:50 MCHC 34.5 g/dL (33.0-37.0) 07/27/17 07:50 RDW 13.7 % (11.5-14.5) 07/27/17 07:50 Plt Count 293 K/uL (130-400) 07/27/17 07:50 MPV 7.2 fL (7.2-11.7) 07/27/17 07:50 Neut % (Auto) 44.5 % (50.0-75.0) L 07/27/17 07:50 Lymph % (Auto) 43.5 % (20.0-40.0) H 07/27/17 07:50 [place] % (Auto) 9.1 % (0.0-10.0) 07/27/17 07:50 Eos % (Auto) 1.8 % (0.0-4.0) 07/27/17 07:50 Baso % (Auto) 1.1 % (0.0-2.0) 07/27/17 07:50 Neut # (Auto) 1.4 K/uL (1.8-7.0) L 07/27/17 07:50 Lymph # (Auto) 1.3 K/uL (1.0-4.3) 07/27/17 07:50 [place] # (Auto) 0.3 K/uL (0.0-0.8) 07/27/17 07:50 Eos # (Auto) 0.1 K/uL (0.0-0.7) 07/27/17 07:50 Baso # (Auto) 0.0 K/uL (0.0-0.2) 07/27/17 07:50 PT 11.9 SECONDS (9.7-12.2) 07/26/17 23:27 INR 1.1 07/26/17 23:27 APTT 27 SECONDS (21-34) 07/26/17 23:27 Sodium 139 mmol/L (132-148) 07/27/17 07:50 Potassium 3.7 mmol/L (3.6-5.2) 07/27/17 07:50 Chloride 105 mmol/L (98-107) 07/27/17 07:50 Carbon Dioxide 26 mmol/L (22-30) 07/27/17 07:50 Anion Gap 13 (10-20) 07/27/17 07:50 BUN 11 mg/dL (7-17) 07/27/17 07:50 Creatinine 0.5 mg/dL (0.7-1.2) L 07/27/17 07:50 Est GFR ( Amer) > 60 07/27/17 07:50 Est GFR (Non-Af Amer) > 60 07/27/17 07:50 POC Glucose (mg/dL) 80 mg/dL (65-110) 07/28/17 11:23 Random Glucose 88 mg/dL (65-105) 07/27/17 07:50 Hemoglobin A1c 5.9 % (4.2-6.5) 07/27/17 07:50 Calcium 8.8 mg/dl (8.6-10.4) 07/27/17 07:50 Phosphorus 3.5 mg/dL (2.5-4.5) 07/27/17 07:50 Magnesium 1.9 mg/dL (1.6-2.3) 07/27/17 07:50 Total Bilirubin 0.3 mg/dL (0.2-1.3) 07/27/17 07:50 AST 22 U/L (14-36) 07/27/17 07:50 ALT 20 U/L (9-52) 07/27/17 07:50 Alkaline Phosphatase 111 U/L (38-126) 07/27/17 07:50 Total Creatine Kinase 102 U/L (30-135) 07/26/17 23:27 CK-MB (Mass) 1.31 ng/mL (0.0-3.38) 07/26/17 23:27 Troponin I < 0.0120 ng/mL (0.00-0.120) 07/26/17 23:27 Total Protein 6.4 g/dL (6.3-8.3) 07/27/17 07:50 Albumin 3.4 g/dL (3.5-5.0) L 07/27/17 07:50 Globulin 3.0 gm/dL (2.2-3.9) 07/27/17 07:50 Albumin/Globulin Ratio 1.1 (1.0-2.1) 07/27/17 07:50 Triglycerides 50 mg/dL (0-149) 07/27/17 07:50 Cholesterol 182 mg/dL (0-199) 07/27/17 07:50 LDL Cholesterol Direct 99 mg/dL (0-129) 07/27/17 07:50 HDL Cholesterol 50 mg/dL (30-70) 07/27/17 07:50 Free T4 1.22 ng/dL (0.78-2.19) 07/27/17 09:55 TSH 3rd Generation 0.35 mIU/L (0.46-4.68) L 07/27/17 07:50 Urine Color Straw (YELLOW) 07/27/17 02:19 Urine Clarity Clear (Clear) 07/27/17 02:19 Urine pH 6.0 (5.0-8.0) 07/27/17 02:19 Ur Specific Loiza 1.012 (1.003-1.030) 07/27/17 02:19 Urine Protein Negative mg/dL (NEGATIVE) 07/27/17 02:19 Urine Glucose (UA) Normal mg/dL (Normal) 07/27/17 02:19 Urine Ketones Negative mg/dL (NEGATIVE) 07/27/17 02:19 Urine Blood Negative (NEGATIVE) 07/27/17 02:19 Urine Nitrate Negative (NEGATIVE) 07/27/17 02:19 Urine Bilirubin Negative (NEGATIVE) 07/27/17 02:19 Urine Urobilinogen Normal mg/dL (0.2-1.0) 03/28/18 02:19 Ur Leukocyte Esterase Neg Lorenzo/uL (Negative) 07/27/17 02:19 Urine WBC (Auto) < 1 /hpf (0-5) 07/27/17 02:19 Ur Squamous Epith Cells 1 /hpf (0-5) 07/27/17 02:19 Urine Opiates Screen Positive (NEGATIVE) H 07/27/17 02:19 Urine Methadone Screen Negative (NEGATIVE) 07/27/17 02:19 Ur Barbiturates Screen Negative (NEGATIVE) 07/27/17 02:19 Ur Phencyclidine Scrn Negative (NEGATIVE) 07/27/17 02:19 Ur Amphetamines Screen Negative (NEGATIVE) 07/27/17 02:19 U Benzodiazepines Scrn Negative (NEGATIVE) 07/27/17 02:19 U Oth Cocaine Metabols Negative (NEGATIVE) 07/27/17 02:19 U Cannabinoids Screen Negative (NEGATIVE) 07/27/17 02:19 Hepatitis A IgM Ab Negative (NEGATIVE) 07/27/17 07:50 Hep Bs Antigen Negative (NEGATIVE) 07/27/17 07:50 Hep B Core IgM Ab Negative (NEGATIVE) 07/27/17 07:50 Hepatitis C Antibody Negative (NEGATIVE) 07/27/17 07:50 HIV 1&2 Antibody Screen Negative (NEGATIVE) 07/27/17 07:50 - Hospital Course Hospital Course: As per admission documentation, 61 year old female with past medical history of seizure disorder, HTN, DM type II presents to the ER s/p fall. Patient states she was walking to the bus stop after work when she hit her foot on the uneven pavement and she fell facing forward. She states she did hit her head and shoulder. She states she does not recall the exact way that she fell. She states she did not lose consciousness but did feel groggy. She denies feeling lightheaded, dizzy, change of vision or change in balance at the time of the fall. She states she took a taxi to the ER because someone told her there are no ambulance to the hospital. She states this has happened before about 2 weeks ago as she was again walking to the bus stop and tripped on the uneven pavement but at that time she did not hit her head. She states she currently has a headache and right shoulder pain. She denies chest pain, palpitations, dizziness, nausea or vomiting. Hospital Course Patient was admitted to the hospital overnight on 07/26 to 07/27 due to a fall with head trauma and hx of seizures. Neurology, Dr. Calderon, was consulted. Patient also complained of right shoulder/hand pain. Right shoulder xray - No demonstrated fracture or dislocation. Right Hand xray - No demonstrated fracture or dislocation. Head CT:No intracranial hemorrhage. Nonspecific white matter changes. 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 Brain MRA - Unremarkable MR angiography of the brain. Patient's pharmacy, [facility] in [place], was called because she was unable to remember the name/dosage of her anti-seizure medication. She was restarted on home dose of Phenytoin 200mg PO BID. Since this was due to a mechanial fall on an uneven sidewalk and imagining was unconcerning, Neurology recommended no change in medications. Patient was slow and mildly confused on 07/27, but showed a vast improvement on 07/28. Her headache had resolved and she neuro exam had become unremarkable. Patient's sister agreed that patient appeared to be back at baseline. Patient was discharged home with a diagnosis of a concussion on 07/28 with the following instructions. Discharge Instructions Patient is to be discharged home per Dr. Simpson. Patient is to follow up with her primary care physician within one week of being discharged. Patient is to follow up with her neurologist within two weeks of being discharged. Patient is to continue taking her medications as previously prescribed. She is be discharged on no new medications. If patient begins to experience any new or worsening symptoms, please return to the nearest emergency room. PHYSICAL EXAM Appears: Non-toxic, No Acute Distress Head Exam: ATRAUMATIC, NORMOCEPHALIC Additional comments: improving mild TTP on posterior, right portion of head. no obvious ecchymosis or trauma. Eye Exam: EOMI, Normal appearance Pupil Exam: NORMAL ACCOMODATION Additional comments: No photophobia. On rapid eye movement testing normal, patient reports no strain or worsening headache. Quickly resolved upon rest. Headache resolved. ENT Exam: Mucous Membranes Moist Neck Exam: Full ROM, Normal Inspection. absent: Lymphadenopathy, Tenderness Respiratory Exam: Clear to Ausculation Bilateral, NORMAL BREATHING PATTERN. absent: Accessory Muscle Use, Rales, Rhonchi, Wheezes, Respiratory Distress Cardiovascular Exam: REGULAR RHYTHM, +S1, +S2 GI & Abdominal Exam: Soft, Normal Bowel Sounds. absent: Distended, Firm, Guarding, Rigid, Tenderness Extremities Exam: mild but improving tenderness (TTP over anterior and lateral portion of right shoulder. Full ROM, 5/5 strength b/l). absent: Calf Tenderness , Pedal Edema Neurological Exam: Alert, Awake, CN II-XII Intact, Oriented x3 Additional comments: Neg pronator drift Neg Romberg Normal heal to george Normal finger to nose Patient has normal gait today. No longer using chairs in room to help balance herself while walking. No assistance needed Psychiatric exam: Normal Affect, Normal Mood Skin Exam: Dry, Warm Discharge Exam - Head Exam Head Exam: ATRAUMATIC, NORMOCEPHALIC Discharge Plan - Follow Up Plan Condition: FAIR Disposition: HOME/ ROUTINE Instructions: Altered Mental Status (DC), Contusion (DC), Minor Head Injury (DC ), Shoulder Sprain (DC), Tramadol Additional Instructions: Patient is to be discharged home per Dr. Simpson. Patient is to follow up with her primary care physician within one week of being discharged. Patient is to follow up with her neurologist within two weeks of being discharged. Patient is to continue taking her medications as previously prescribed. She is be discharged on no new medications. If patient begins to experience any new or worsening symptoms, please return to the nearest emergency room.
[2017-07-29 23:21] LABS: PHENYTOIN,FREE 1.3 mg/L (1.0-2.0)
== END 2017-07-28 14:20 | disposition home or self-care (01) ==
LOC: C.ER 18:43 → C.3T 07-27 00:30 → C.9E 07-27 02:02 → C.5S 07-27 02:18
PROVIDERS: ADMIT Hospitalist; ATTEND Hospitalist
DX: S06.0X9A Concussion with loss of consciousness of unspecified duration, initial encounter (principal); I10 Essential (primary) hypertension; S40.019A Contusion of unspecified shoulder, initial encounter; G40.909 Epilepsy, unspecified, not intractable, without status epilepticus; D72.819 Decreased white blood cell count, unspecified; S60.229A Contusion of unspecified hand, initial encounter; W01.0XXA Fall on same level from slipping, tripping and stumbling without subsequent striking against object, initial encounter; Z79.4 Long term (current) use of insulin; Z87.891 Personal history of nicotine dependence; E11.9 Type 2 diabetes mellitus without complications
CPT/HCPCS: 36415; 70450; 70544; 70551; 73030; 73130; 80053; 80061; 80074; 80186; 80324; 80345; 80346; 80349; 80353; 80358; 80361; 81001; 82550; 82553; 82948; 83036; 83735; 83992; 84100; 84439; 84443; 84484; 85025; 85610; 85730; 86703; 93005; 97112; 97116; 97162; 97165; 97530; 99285; G0378; G8978; G8979; G8980; G8987; G8988; G8989; J1100; J3475; J7040

== ENCOUNTER 2017-12-11 13:19 | Inpatient (IN) | payer OTHER ==
[2017-12-11 13:26] VITALS: BMI 25.0
--- NOTE | 2017-12-11 13:32 | C.PDOC ---
History Of Present Illness 62 y/o F c PMHx seizure disorder, HTN, DM p/w altered mental status x 30 minutes. Patient was at [facility] when she was noted by staff to become suddenly confused, touching the mirror and acting strangely 30 minutes ago. This is the last time well. The patient currently denies numbness, weakness, facial droop, difficulty speaking. She does note a headache. Last visit to this ED was 5 months ago when patient was admitted for a head injury and was diagnosed with concussion. Time Seen by Provider: 12/11/17 13:20 Past Medical History Vital Signs: Last Vital Signs Temp 98.5 F 12/11/17 15:12 Pulse 64 12/11/17 15:12 Resp 16 12/11/17 15:12 BP 121/79 12/11/17 15:12 Pulse Ox 97 12/11/17 15:12 - Medical History PMH: Diabetes, HTN, Seizures Family History: States: No Known Family Hx - Social History Hx Alcohol Use: No Hx Substance Use: No - Immunization History Hx Tetanus Toxoid Vaccination: Yes Hx Influenza Vaccination: No Review Of Systems Except As Marked, All Systems Reviewed And Found Negative. Constitutional: Negative for: Fever Respiratory: Negative for: Shortness of Breath Physical Exam - Physical Exam Additional Physical Exam Comments: Constitutional: No acute distress. Head: Normocephalic. Atraumatic. Eyes: PERRL. ENT: Moist mucous membranes. Neck: Supple. Cardiovascular: Regular rate. Radial pulse 2+ bilaterally. Chest: No tenderness. Respiratory: Clear to auscultation bilaterally. GI: Soft. Nontender. Nondistended. Back: No CVA tenderness. Musculoskeletal: No tenderness or swelling of extremities. Skin: No rash. Neurologic: Alert. Oriented x 2. CN II to XII intact. Motor 5/5 x 4. Sensation to light touch intact bilaterally. ED Course And Treatment - Laboratory Results Result Diagrams: 12/11/17 13:31 12/11/17 13:31 NIHSS Stroke Scale - Date/Time Evaluation Performed Date Performed: 12/11/17 Time Performed: 13:32 When Was NIHSS Performed: Baseline - How Severe is the Stroke Level of Consciousness: 0=Alert LOC to Questions: 1=One correct LOC to commands: 0=Obeys both correctly Best Gaze: 0=Normal Visual: 0=No visual loss Facial: 0=Normal Motor Arm - Left: 0=No drift Motor Arm - Right: 0=No drift Motor Leg - Left: 0=No drift Motor Leg - Right: 0=No drift Limb Ataxia: 0=Absent Sensory: 0=Normal Best Language: 0=No aphasia Dysarthia: 0=Normal articulation Extinction & Inattention (Neglect): 0=Normal, no object Score: 1 rTPA Inclusion/Exclusion - Refusal of Treatment Patient Refused Treatment: No - Inclusion Criteria for Altepase Patient is 18 years or Older: Yes The Clinical Diagnosis of Ischemic Stroke That is Causing a Potentially Disabling Neurological Deficit: No Time of Onset is Well Established to be Less Than 270 Minute Before Treatment Would Begin: Yes Risk/Benefit Discussed With Patient/Family Member Present: Yes - Warning to TPA With Conditions Condition: Stroke Serevity Too Mild, Rapid Improvement Medical Decision Making Medical Decision Making: CODE STROKE activated upon patient's arrival. EKG: Sinus bradycardia at [address]/T wave changes. IMPRESSION: No evidence of acute intracranial hemorrhage territorial infarction mass effect or midline shift. Patient appears more alert, sister at bedside states she seems to be improving. Still oriented x 2 although knows it is summer time. Dr. Josefina Judd accepts patient to his service. Dr. Calderon consulted. Disposition - Disposition Disposition: HOSPITALIZED Disposition Time: 15:03 Condition: FAIR - POA Core Measure Indicators: Code Stroke - Clinical Impression Clinical Impression: Altered mental status
[2017-12-11 13:39] LABS: BASO % 0.6 % (0.0-2.0); EOS % 0.8 % (0.0-4.0); HEMOGLOBIN 12.2 g/dL (11.0-16.0); LYMPH # 1.6 K/uL (1.0-4.3); LYMPH % 29.2 % (20.0-40.0); MEAN CELL VOLUME 96.5 fL (81.0-99.0); MEAN CORPUSCULAR HEMOGLOBIN 33.3 pg (27.0-31.0); MEAN CORPUSCULAR HGB CONC 34.5 g/dL (33.0-37.0); MEAN PLATELET VOLUME 7.3 fL (7.2-11.7); MONO # 0.5 K/uL (0.0-0.8); MONO % 8.7 % (0.0-10.0); NEUT # 3.3 K/uL (1.8-7.0); NEUT % 60.7 % (50.0-75.0); RBC 3.67 Mil/uL (3.80-5.20); RED CELL DISTRIBUTION WIDTH 14.7 % (11.5-14.5); WHITE BLOOD COUNT 5.4 K/uL (4.8-10.8)
[2017-12-11 13:46] LABS: INR 1.2; PROTHROMBIN TIME 12.7 SECONDS (9.7-12.2)
[2017-12-11 13:50] LABS: ALB/GLOB RATIO 1.5 (1.0-2.1); ALBUMIN 4.2 g/dL (3.5-5.0); CALCIUM 8.9 mg/dl (8.6-10.4); GFR AFRICAN-AMERICAN > 60; GFR NON-AFRICAN AMERICAN > 60; HDL CHOLESTEROL 63 mg/dL (30-70)
[2017-12-11 13:59] LABS: ALT/SGPT 31 U/L (9-52); AST/SGOT 23 U/L (14-36); BLOOD UREA NITROGEN 12 mg/dL (7-17)
[2017-12-11 14:01] LABS: LDL CHOLESTEROL 84 mg/dL (0-129)
--- NOTE | 2017-12-11 14:02 | CT ---
Date of service: 12/11/2017 PROCEDURE: CT HEAD WITHOUT CONTRAST. HISTORY: Code Stroke COMPARISON: Comparison is made to the previous study dated 07/27/2017 TECHNIQUE: Axial computed tomography images were obtained through the head/brain without intravenous contrast. Radiation dose: Total exam DLP = 793.75 mGy-cm. This CT exam was performed using one or more of the following dose reduction techniques: Automated exposure control, adjustment of the mA and/or kV according to patient size, and/or use of iterative reconstruction technique. FINDINGS: HEMORRHAGE: No intracranial hemorrhage. BRAIN: No mass effect or edema. No atrophy or chronic microvascular ischemic changes. VENTRICLES: Unremarkable. No hydrocephalus. CALVARIUM: Unremarkable. PARANASAL SINUSES: Unremarkable as visualized. No significant inflammatory changes. MASTOID AIR CELLS: Unremarkable as visualized. No inflammatory changes. OTHER FINDINGS: None. IMPRESSION: No evidence of acute intracranial hemorrhage territorial infarction mass effect or midline shift.
--- NOTE | 2017-12-11 16:16 | CP.PCM.CON ---
History of Present Illness - History of Present Illness History of Present Illness: Neurology Consultation Note: Mrs. Henderson is a 62-year-old woman with a past medical history of seizure disorder (on dilantin), HTN, DM, who presented in an encephalopathic state originally that had lasted for about 30 minutes while she was at the [employer]. According to the staff, the patient became confused and started to touch the mirror and behave strangely. In the ED, she was improving and returning to baseline. The patient does not have recollection of the event. She states that she remembers when she "woke up", people were around her and asking her questions. Review of Systems - Review of Systems All systems: reviewed and no additional remarkable complaints except Past Patient History - Past Social History Smoking Status: Never Smoked - CARDIAC Hx Hypertension: Yes - NEUROLOGICAL Hx Seizures: Yes - ENDOCRINE/METABOLIC Hx Diabetes Mellitus Type 1: Yes Hx Diabetes Mellitus Type 2: Yes - PSYCHIATRIC Hx Substance Use: No - SURGICAL HISTORY Other/Comment: BL BREAST SURGERY - ANESTHESIA Hx Anesthesia: Yes Hx Anesthesia Reactions: No Meds Allergies/Adverse Reactions: Allergies Allergy/AdvReac Type Severity Reaction Status Date / Time Penicillins Allergy SHORTNESS Verified 07/26/17 20:00 OF BREATH Physical Exam - Neurological Exam Neurological exam: Alert, CN II-XII Intact, Oriented x3, Reflexes Normal - Psychiatric Exam Additional comments: Bradyphrenic. No significant focal neurological deficits. Results - Vital Signs Recent Vital Signs: Last Vital Signs Temp 98.5 F 12/11/17 15:12 Pulse 64 12/11/17 15:12 Resp 16 12/11/17 15:12 BP 121/79 12/11/17 15:12 Pulse Ox 97 12/11/17 15:12 - Labs Result Diagrams: 12/11/17 13:31 12/11/17 13:31 Labs: Laboratory Results - last 24 hr 12/11/17 12/11/17 12/11/17 13:31 13:31 13:31 WBC 5.4 D RBC 3.67 L Hgb 12.2 Hct 35.4 MCV 96.5 MCH 33.3 H MCHC 34.5 RDW 14.7 H Plt Count 221 MPV 7.3 Neut % (Auto) 60.7 Lymph % (Auto) 29.2 Henderson % (Auto) 8.7 Eos % (Auto) 0.8 Baso % (Auto) 0.6 Neut # (Auto) 3.3 Lymph # (Auto) 1.6 Henderson # (Auto) 0.5 Eos # (Auto) 0.0 Baso # (Auto) 0.0 PT 12.7 H INR 1.2 APTT 26 Sodium 141 Potassium 3.7 Chloride 104 Carbon Dioxide 31 H Anion Gap 10 BUN 12 Creatinine 0.6 L Est GFR ( Amer) > 60 Est GFR (Non-Af Amer) > 60 Random Glucose 84 Hemoglobin A1c Calcium 8.9 Total Bilirubin 0.5 AST 23 ALT 31 Alkaline Phosphatase 101 Troponin I 0.0170 Total Protein 7.0 Albumin 4.2 Globulin 2.8 Albumin/Globulin Ratio 1.5 Triglycerides 47 Cholesterol 179 LDL Cholesterol Direct 84 HDL Cholesterol 63 Blood Type Antibody Screen Antibody Identification Antigen Identification 12/11/17 12/11/17 13:31 13:45 WBC RBC Hgb Hct MCV MCH MCHC RDW Plt Count MPV Neut % (Auto) Lymph % (Auto) Henderson % (Auto) Eos % (Auto) Baso % (Auto) Neut # (Auto) Lymph # (Auto) Henderson # (Auto) Eos # (Auto) Baso # (Auto) PT INR APTT Sodium Potassium Chloride Carbon Dioxide Anion Gap BUN Creatinine Est GFR ( Amer) Est GFR (Non-Af Amer) Random Glucose Hemoglobin A1c 5.8 Calcium Total Bilirubin AST ALT Alkaline Phosphatase Troponin I Total Protein Albumin Globulin Albumin/Globulin Ratio Triglycerides Cholesterol LDL Cholesterol Direct HDL Cholesterol Blood Type O POSITIVE Antibody Screen Positive Antibody Identification Anti E Antigen Identification E Antigen - NEGATIVE Assessment & Plan (1) Seizure Assessment and Plan: The patient likely had a complex partial seizure based on history and subsequent post-ictal state. TIA is less likely. I recommend checking the serum dilantin level and will supplement dosing accordingly. However, an EEG ( awake and drowsy for 30 mints), and an MRI of the brain without contrast are also recommended. The patient should be given aspirin 81 mg daily, fluids with NS at 100 mL/hr, PT/OT eval and treatment and will check serum for HbA1c, B12, folate, and vitamin D levels. For now, continue Dilantin at 200 mg BID. Thank you. Status: Acute Priority: High
--- NOTE | 2017-12-11 17:15 | RAD ---
Date of service: 12/11/2017 HISTORY: Code Stroke COMPARISON: No prior. FINDINGS: LUNGS: No active pulmonary disease. PLEURA: No significant pleural effusion identified, no pneumothorax apparent. CARDIOVASCULAR: Atherosclerotic aortic calcifications. Cardiomediastinal silhouette enlarged. OSSEOUS STRUCTURES: Degenerative changes. VISUALIZED UPPER ABDOMEN: Normal. OTHER FINDINGS: None. IMPRESSION: No active disease.
--- NOTE | 2017-12-12 07:07 | CP.PCM.PN ---
Subjective - Date & Time of Evaluation Date of Evaluation: 12/12/17 Time of Evaluation: 07:02 - Subjective Subjective: Ms. Henderson was seen and examined at the bedside. She is alert, oriented x 3. She is able to recall the events prior to the hospitalization. She denies any headache, blurred vision, diplopia, nausea. She is able to follow simple commands, but asymmetrical sensation in her left facial area. Dilantin level 16.7.There was no untoward events overnight. Objective - Vital Signs/Intake and Output Vital Signs (last 24 hours): Temp Pulse Resp BP Pulse Ox 98.2 F 52 L 20 112/72 98 12/12/17 04:10 12/12/17 05:13 12/12/17 04:10 12/12/17 04:10 12/12/17 04:10 - Medications Medications: Current Medications Aspirin (Aspirin) 325 mg PO DAILY [facility] Aspirin (Aspirin Chewable) 81 mg PO DAILY [facility] Home Med (Benazepril Hcl [Benazepril Hcl]) 20 mg PO DAILY [facility] Home Med (Metformin) 1 tab PO BID [facility] Home Med (Phenytoin Sodium Extended [Phenytoin Sodium Extended]) 200 mg PO BID [facility] Sodium Chloride (Sodium Chloride 0.9%) 1,000 mls @ 100 mls/hr IV .Q10H [facility] Pantoprazole Sodium (Protonix Ec Tab) 40 mg PO DAILY [facility] - Labs Labs: 12/11/17 13:31 12/11/17 13:31 PT 12.7 SECONDS (9.7-12.2) H 12/11/17 13:31 INR 1.2 12/11/17 13:31 APTT 26 SECONDS (21-34) 12/11/17 13:31 - Constitutional Appears: No Acute Distress - Head Exam Head Exam: NORMAL INSPECTION - Eye Exam Pupil Exam: PERRL - Respiratory Exam Respiratory Exam: NORMAL BREATHING PATTERN - Neurological Exam Neurological Exam: Alert, Awake, Oriented x3 Neuro motor strength exam: Left Upper Extremity: 5, Right Upper Extremity: 5, Left Lower Extremity: 5, Right Lower Extremity: 5 Additional comments: alert, oriented, able to follow simple commands, asymmetrical facial sensation on the left side. Assessment and Plan (1) Seizure Assessment & Plan: Case discussed with Dr. Calderon, continue all current medical regimen. Recommend MRI of the brain without contrast, EEG, Folate, Vitamin B 12, Vitamin D, Lipid, PT/ OT eval and treat. Status: Acute
[2017-12-12] MEDS ORDERED: PHENYTOIN SODIUM 200 MG PO SCH (10:00)
[2017-12-12] MEDS ORDERED: METFORMIN PO SCH ×2 (10:00→18:00)
[2017-12-12] MEDS ORDERED: BENAZEPRIL HCL 20 MG PO SCH (10:00)
[2017-12-12] MEDS: Pantoprazole 40 mg EC Tab PO SCH (10:34)
[2017-12-12] MEDS: Sodium Chloride 0.9% 1,000 ML IV SCH ×2 (10:52→17:15)
--- NOTE | 2017-12-12 12:32 | MRI ---
Date of service: 12/12/2017 PROCEDURE: MRI BRAIN WITHOUT CONTRAST HISTORY: seizure COMPARISON: Comparison is made to the previous study dated 07/27/2017 TECHNIQUE: Multiplanar, multisequence MR images of the brain were obtained without intravenous contrast enhancement. FINDINGS: HEMORRHAGE: None DWI: No evidence of an acute or early subacute infarction. BRAIN PARENCHYMA: No mass effect or edema. Again seen is with defined cyst at the sella and suprasellar region may represent arachnoid cyst measures 1.4 centimeter in the AP diameter and 1.3 centimeter in the longitudinal diameter. No atrophy or chronic microvascular ischemic changes. VENTRICLES: Unremarkable. No hydrocephalus. CRANIUM: Unremarkable. ORBITS: Grossly unremarkable. PARANASAL SINUSES/MASTOIDS: Clear VASCULAR SYSTEM: Skull base flow voids intact. OTHER FINDINGS: None. IMPRESSION: No evidence of acute pathology in the brain. No evidence of mass lesion mass effect or midline shift. Re- demonstration of well defined cyst at the sella and suprasellar region may represent arachnoid cyst.
[2017-12-12 13:17] LABS: FOLATE 11.5 ng/mL
--- NOTE | 2017-12-12 18:38 | CP.PCM.HP ---
Past Patient History - Past Social History Smoking Status: Never Smoked - CARDIAC Hx Hypertension: Yes - NEUROLOGICAL Hx Seizures: Yes - ENDOCRINE/METABOLIC Hx Diabetes Mellitus Type 1: Yes Hx Diabetes Mellitus Type 2: Yes - MUSCULOSKELETAL/RHEUMATOLOGICAL Hx Falls: Yes - PSYCHIATRIC Hx Substance Use: No - SURGICAL HISTORY Other/Comment: BL BREAST SURGERY - ANESTHESIA Hx Anesthesia: Yes Hx Anesthesia Reactions: No Meds Allergies/Adverse Reactions: Allergies Allergy/AdvReac Type Severity Reaction Status Date / Time Penicillins Allergy SHORTNESS Verified 07/26/17 20:00 OF BREATH Physical Exam - Constitutional Appears: Well - Head Exam Head Exam: ATRAUMATIC, NORMAL INSPECTION, NORMOCEPHALIC - Eye Exam Eye Exam: EOMI, Normal appearance, PERRL Pupil Exam: NORMAL ACCOMODATION, PERRL - ENT Exam ENT Exam: Mucous Membranes Moist, Normal Exam - Neck Exam Neck exam: Positive for: Normal Inspection - Respiratory Exam Respiratory Exam: Decreased Breath Sounds - Cardiovascular Exam Cardiovascular Exam: REGULAR RHYTHM, +S1, +S2 - GI/Abdominal Exam GI & Abdominal Exam: Diminished Bowel Sounds, Soft - Rectal Exam Rectal Exam: Deferred Results - Vital Signs Recent Vital Signs: Last Vital Signs Temp 98 F 12/12/17 15:30 Pulse 52 L 12/12/17 15:30 Resp 18 12/12/17 15:30 BP 109/71 12/12/17 15:30 Pulse Ox 98 12/12/17 15:30 - Labs Result Diagrams: 12/11/17 13:31 12/11/17 13:31 Labs: Laboratory Results - last 24 hr 12/11/17 12/12/17 12/12/17 13:23 06:55 11:29 POC Glucose (mg/dL) 84 89 Triglycerides 56 Cholesterol 186 LDL Cholesterol Direct 87 HDL Cholesterol 54 Vitamin B12 887 25-OH Vitamin D Total Folate 11.5 12/12/17 12/12/17 12/12/17 11:29 12:32 16:38 POC Glucose (mg/dL) 80 87 Triglycerides Cholesterol LDL Cholesterol Direct HDL Cholesterol Vitamin B12 25-OH Vitamin D Total 42.7 Folate
--- NOTE | 2017-12-12 20:32 | CP.PCM.PN ---
Subjective - Date & Time of Evaluation Date of Evaluation: 12/12/17 Time of Evaluation: 06:55 - Subjective Subjective: PGY2 Medicine Note for Dr. 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 Per ED note, patient was confused, touching mirror and acting strangely for 30 minutes. Patient does not recall what happened and reports sitting in chair having her hair dried and then waking up in an ambulance. She currently is resting comfortably in bed and AAOx3. She has a known seizure hx but reports never having confusion. She feels normal now and is AAOx3. She was seen back in June 2017 for concussion s/p fall. Patient has no acute medical complaints at this time. Denies fevers, chills, nausea, vomiting, diarrhea, constipation, chest pain, SOB, abdominal pain, numbness, tingling, focal weakness, slurred speech, vision changes or headaches. PMD: previously had a primary but is no longer seeing that physician and does not recall name Past Medical history: Seizure disorder, HTN, DM type II Surgical History: bilateral breast surgery (nipple area) Medications: Phenytoin, Metformin, Benazepril --> Patient does not recall dosages of medications; Patient uses 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 Currently denies alcohol and illicit drug use. Objective - Vital Signs/Intake and Output Vital Signs (last 24 hours): Temp Pulse Resp BP Pulse Ox 98 F 52 L 18 109/71 98 12/12/17 15:30 12/12/17 15:30 12/12/17 15:30 12/12/17 15:30 12/12/17 15:30 Intake and Output: 12/12/17 12/13/17 18:59 06:59 Intake Total 700 Balance 700 - Medications Medications: Current Medications Aspirin (Aspirin Chewable) 81 mg PO DAILY [facility] Last Admin: 12/12/17 10:34 Dose: 81 mg Enalapril Maleate (Vasotec) 10 mg PO DAILY [facility] Home Med (Metformin) 1 tab PO BID [facility] Sodium Chloride (Sodium Chloride 0.9%) 1,000 mls @ 100 mls/hr IV .Q10H [facility] Last Admin: 12/12/17 10:52 Dose: 100 mls/hr Pantoprazole Sodium (Protonix Ec Tab) 40 mg PO DAILY [facility] Last Admin: 12/12/17 10:34 Dose: 40 mg Phenytoin Sodium (Dilantin) 200 mg PO BID [facility] Last Admin: 12/12/17 18:44 Dose: 200 mg - Labs Labs: 12/11/17 13:31 12/11/17 13:31 PT 12.7 SECONDS (9.7-12.2) H 12/11/17 13:31 INR 1.2 12/11/17 13:31 APTT 26 SECONDS (21-34) 12/11/17 13:31 - Constitutional Appears: Non-toxic, No Acute Distress - Head Exam Head Exam: ATRAUMATIC, NORMOCEPHALIC - Eye Exam Eye Exam: EOMI, Normal appearance, PERRL Pupil Exam: NORMAL ACCOMODATION, PERRL - ENT Exam ENT Exam: Mucous Membranes Moist - Neck Exam Neck Exam: Full ROM. absent: Lymphadenopathy, Meningismus - Respiratory Exam Respiratory Exam: Clear to Ausculation Bilateral, NORMAL BREATHING PATTERN. absent: Accessory Muscle Use, Rales, Rhonchi, Wheezes, Respiratory Distress - Cardiovascular Exam Cardiovascular Exam: REGULAR RHYTHM, +S1, +S2 - GI/Abdominal Exam GI & Abdominal Exam: Soft, Normal Bowel Sounds. absent: Distended, Firm, Guarding, Rigid, Tenderness - Extremities Exam Extremities Exam: absent: Calf Tenderness, Pedal Edema - Neurological Exam Neurological Exam: Alert, Awake, CN II-XII Intact, Normal Gait, Oriented x3. absent: Abnormal Gait, Altered, Motor Sensory Deficit Neuro motor strength exam: Left Upper Extremity: 5, Right Upper Extremity: 5, Left Lower Extremity: 5, Right Lower Extremity: 5 - Psychiatric Exam Psychiatric exam: Normal Affect, Normal Mood - Skin Skin Exam: Dry, Warm Assessment and Plan - Assessment and Plan (Free Text) Plan: Altered Mental Status (resolved) Neuro Consult: Dr. Calderon --> help appreciated * per neuro note, likely complex partial seizure * EGG * Brain MRI w/o Head CT w/o 12/12/17: * No evidence of acute intracranial hemorrhage territorial infarction mass effect or midline shift. Brain MRI w/o 12/12/17: * No evidence of acute pathology in the brain. No evidence of mass lesion mass effect or midline shift. Re- demonstration of well defined cyst at the sella and suprasellar region may represent arachnoid cyst. CXR: No active disease Hgb A1c 5.8 Folate 11.5 Vit B12 887 Lipid Panel HDL 54, LDL 87, Trigly 186 Trop 0.0170 Aspirin 81mg PO daily NS @ 100mL/hr Seizure Disorder Neuro Consult: Dr. Calderon --> help appreciated Continue home Phenytoin 200mg PO BID Phenytoin Level - 16.7 Hypertension continue home Enalapril Maleate 10mg PO daily continue to monitor DM Type II Hgb A1c 5.8 Accuchecks Metformin 250mg PO BID Prophylactic Care Neurochecks SCDs PT eval and treat All medical management per Dr. Josefina Khanna Dean PGY2
--- NOTE | 2017-12-12 23:09 | CARD ---
APPROVED REPORT Date of service: 12/11/2017 EKG Measurement Heart [id number] <Conclusion> Sinus bradycardia Otherwise normal ECG
[2017-12-13] MEDS: Sodium Chloride 0.9% 1,000 ML IV SCH ×2 (05:08→12:42)
[2017-12-13] MEDS: Pantoprazole 40 mg EC Tab PO SCH (09:13)
--- NOTE | 2017-12-13 09:18 | CP.PCM.PN ---
Subjective - Date & Time of Evaluation Date of Evaluation: 12/13/17 Time of Evaluation: 09:08 - Subjective Subjective: PGY2 Medicine Note for Dr. Josefina Judd Patient seen and examined this morning at bedside. No acute events overnight. Patient is feeling well and has no complaints at this time. She is feeling well and is hoping to be discharged home today. She is AAOx3. Denies fevers, chills, nausea, vomiting, diarrhea, constipation, chest pain, shortness of breath, abdominal pain, numbness or tingling. Objective - Vital Signs/Intake and Output Vital Signs (last 24 hours): Temp Pulse Resp BP Pulse Ox 98.1 F 50 L 20 127/81 98 12/13/17 07:00 12/13/17 07:00 12/13/17 07:00 12/13/17 07:00 12/13/17 07:00 Intake and Output: 12/13/17 12/13/17 06:59 18:59 Intake Total 1920 Balance 1920 - Medications Medications: Current Medications Aspirin (Aspirin Chewable) 81 mg PO DAILY [facility] Last Admin: 12/12/17 10:34 Dose: 81 mg Enalapril Maleate (Vasotec) 10 mg PO DAILY [facility] Sodium Chloride (Sodium Chloride 0.9%) 1,000 mls @ 100 mls/hr IV .Q10H [facility] Last Admin: 12/13/17 05:08 Dose: Not Given Metformin HCl (Glucophage) 250 mg PO BID [facility] Pantoprazole Sodium (Protonix Ec Tab) 40 mg PO DAILY [facility] Last Admin: 12/12/17 10:34 Dose: 40 mg Phenytoin Sodium (Dilantin) 200 mg PO BID [facility] Last Admin: 12/12/17 18:44 Dose: 200 mg - Labs Labs: 12/11/17 13:31 12/11/17 13:31 PT 12.7 SECONDS (9.7-12.2) H 12/11/17 13:31 INR 1.2 12/11/17 13:31 APTT 26 SECONDS (21-34) 12/11/17 13:31 - Constitutional Appears: Non-toxic, No Acute Distress - Head Exam Head Exam: ATRAUMATIC, NORMOCEPHALIC - Eye Exam Eye Exam: EOMI, Normal appearance, PERRL Pupil Exam: NORMAL ACCOMODATION, PERRL - ENT Exam ENT Exam: Mucous Membranes Moist - Neck Exam Neck Exam: absent: Lymphadenopathy - Respiratory Exam Respiratory Exam: Clear to Ausculation Bilateral, NORMAL BREATHING PATTERN. absent: Accessory Muscle Use, Rales, Rhonchi, Wheezes, Respiratory Distress - Cardiovascular Exam Cardiovascular Exam: REGULAR RHYTHM, +S1, +S2 - GI/Abdominal Exam GI & Abdominal Exam: Soft, Normal Bowel Sounds. absent: Distended, Firm, Guarding, Rigid, Tenderness - Extremities Exam Extremities Exam: absent: Calf Tenderness, Pedal Edema - Neurological Exam Neurological Exam: Abnormal Gait, Alert, Awake, CN II-XII Intact, Oriented x3. absent: Altered, Motor Sensory Deficit Neuro motor strength exam: Left Upper Extremity: 5, Right Upper Extremity: 5, Left Lower Extremity: 5, Right Lower Extremity: 5 - Psychiatric Exam Psychiatric exam: Normal Affect, Normal Mood - Skin Skin Exam: Dry, Warm Assessment and Plan - Assessment and Plan (Free Text) Plan: Breakthrough Seizure w/ Treatment Neuro Consult: Dr. Calderon --> help appreciated * per neuro note, likely complex partial seizure * EGG: abnormal - shows epileptiform sharp waves. * Brain MRI w/o * Discussed case with Dr. Thomas, will switch patient from Phnytoin to Depakote 750mg PO BID, will give loading dose of 1,000mg today. * Will monitor overnight to make sure patient tolerating medication change. Head CT w/o 12/12/17: * No evidence of acute intracranial hemorrhage territorial infarction mass effect or midline shift. Brain MRI w/o 12/12/17: * No evidence of acute pathology in the brain. No evidence of mass lesion mass effect or midline shift. Re- demonstration of well defined cyst at the sella and suprasellar region may represent arachnoid cyst. CXR: No active disease Hgb A1c 5.8 Folate 11.5 Vit B12 887 Lipid Panel HDL 54, LDL 87, Trigly 186 Trop 0.0170 Aspirin 81mg PO daily NS @ 100mL/hr Seizure Disorder Neuro Consult: Dr. Calderon --> help appreciated Continue home Phenytoin 200mg PO BID Phenytoin Level - 16.7 Hypertension continue home Enalapril Maleate 10mg PO daily continue to monitor DM Type II Hgb A1c 5.8 Accuchecks Metformin 250mg PO BID Prophylactic Care Neurochecks SCDs PT eval and treat DISPO: Will monitor overnight to make sure patient tolerating medication change. possible dc tomorrow. All medical management per Dr. Josefina Khanna Dean PGY2
--- NOTE | 2017-12-13 10:35 | PCM.EEG ---
Electroencephalogram Report - Electroencephalogram Report Procedure Date: 12/12/17 Interpretation: There are frequent frontal sharps throughout this record. There are no clinical or subclinical seizures. There is normal sleep and posterior dominant rhythm. Impression: This is an abnormal EEG which shows epileptiform sharp waves.
--- NOTE | 2017-12-13 19:54 | CP.PCM.PN ---
Subjective - Date & Time of Evaluation Date of Evaluation: 12/13/17 Time of Evaluation: 10:30 - Subjective Subjective: clinically same Objective - Vital Signs/Intake and Output Vital Signs (last 24 hours): Temp Pulse Resp BP Pulse Ox 97.3 F L 61 18 116/72 100 12/13/17 15:39 12/13/17 16:00 12/13/17 15:39 12/13/17 15:39 12/13/17 15:39 Intake and Output: 12/13/17 12/14/17 18:59 06:59 Intake Total 400 Balance 400 - Medications Medications: Current Medications Aspirin (Aspirin Chewable) 81 mg PO DAILY [facility] Last Admin: 12/13/17 09:13 Dose: 81 mg Enalapril Maleate (Vasotec) 10 mg PO DAILY [facility] Last Admin: 12/13/17 09:19 Dose: 10 mg Sodium Chloride (Sodium Chloride 0.9%) 1,000 mls @ 100 mls/hr IV .Q10H [facility] Last Admin: 12/13/17 12:42 Dose: Not Given Metformin HCl (Glucophage) 500 mg PO BID [facility] Last Admin: 12/13/17 17:22 Dose: 500 mg Pantoprazole Sodium (Protonix Ec Tab) 40 mg PO DAILY [facility] Last Admin: 12/13/17 09:13 Dose: 40 mg Phenytoin Sodium (Dilantin) 100 mg PO BID [facility] Last Admin: 12/13/17 17:47 Dose: 100 mg - Labs Labs: 12/11/17 13:31 12/11/17 13:31 PT 12.7 SECONDS (9.7-12.2) H 12/11/17 13:31 INR 1.2 12/11/17 13:31 APTT 26 SECONDS (21-34) 12/11/17 13:31 - Constitutional Appears: Well - Head Exam Head Exam: ATRAUMATIC, NORMAL INSPECTION, NORMOCEPHALIC - Eye Exam Eye Exam: EOMI, Normal appearance, PERRL Pupil Exam: NORMAL ACCOMODATION, PERRL - ENT Exam ENT Exam: Mucous Membranes Moist, Normal Exam - Neck Exam Neck Exam: Full ROM, Normal Inspection. absent: Lymphadenopathy - Respiratory Exam Respiratory Exam: Decreased Breath Sounds - Cardiovascular Exam Cardiovascular Exam: REGULAR RHYTHM, +S1, +S2 - GI/Abdominal Exam GI & Abdominal Exam: Soft, Diminished Bowel Sounds - Rectal Exam Rectal Exam: Deferred
[2017-12-14 01:15] VITALS: RESP 20
--- NOTE | 2017-12-14 07:42 | CP.PCM.PN ---
<Colton Barr - Last Filed: 12/14/17 07:44> Subjective - Date & Time of Evaluation Date of Evaluation: 12/14/17 Time of Evaluation: 07:38 - Subjective Subjective: Ms. Henderson was seen and examined at the bedside. She remains alert,oriented in all spheres. She denies any headache, dizziness, follows simple commands, able to ambulate within the room. MRI of the brain showed No evidence of acute pathology in the brain.No evidence of mass lesion mass effect or midline shift. Re- demonstration of well defined cyst at the sella and suprasellar region may represent arachnoid cyst. EEG showed abnormal with epileptical sharp wave form. There was no untoward events overnight. Objective - Vital Signs/Intake and Output Vital Signs (last 24 hours): Temp Pulse Resp BP Pulse Ox 98.1 F 53 L 20 113/75 99 12/13/17 23:50 12/14/17 04:00 12/13/17 23:50 12/13/17 23:50 12/13/17 23:50 - Medications Medications: Current Medications Aspirin (Aspirin Chewable) 81 mg PO DAILY [facility] Last Admin: 12/13/17 09:13 Dose: 81 mg Enalapril Maleate (Vasotec) 10 mg PO DAILY [facility] Last Admin: 12/13/17 09:19 Dose: 10 mg Metformin HCl (Glucophage) 500 mg PO BID [facility] Last Admin: 12/13/17 17:22 Dose: 500 mg Pantoprazole Sodium (Protonix Ec Tab) 40 mg PO DAILY [facility] Last Admin: 12/13/17 09:13 Dose: 40 mg Phenytoin Sodium (Dilantin) 100 mg PO BID [facility] Last Admin: 12/13/17 17:47 Dose: 100 mg - Labs Labs: 12/11/17 13:31 12/11/17 13:31 PT 12.7 SECONDS (9.7-12.2) H 12/11/17 13:31 INR 1.2 12/11/17 13:31 APTT 26 SECONDS (21-34) 12/11/17 13:31 - Constitutional Appears: No Acute Distress - Head Exam Head Exam: NORMAL INSPECTION - Eye Exam Pupil Exam: PERRL - Neurological Exam Neurological Exam: Alert, Awake, Oriented x3 Neuro motor strength exam: Left Upper Extremity: 5, Right Upper Extremity: 5, Left Lower Extremity: 5, Right Lower Extremity: 5 Additional comments: alert, awake, follows commands, sensation is intact. Assessment and Plan (1) Seizure Assessment & Plan: continue all current medical regimen. Recommend to d/c IVF since patient PO is excellent, follow up with her private neurologist upon discharge, instruct patient the importance of hydration. May d/d to home pending primary team evaluation and recommendation. Status: Acute <Emily Thomas - Last Filed: 12/14/17 15:15> Objective - Vital Signs/Intake and Output Vital Signs (last 24 hours): Temp Pulse Resp BP Pulse Ox 97.9 F 52 L 20 135/87 100 12/14/17 07:15 12/14/17 11:55 12/14/17 07:15 12/14/17 09:08 12/14/17 07:15 - Medications Medications: Current Medications Aspirin (Aspirin Chewable) 81 mg PO DAILY [facility] Last Admin: 12/14/17 09:09 Dose: 81 mg Divalproex Sodium (Depakote Dr) 500 mg PO ONCE ONE Stop: 12/14/17 16:01 Divalproex Sodium (Depakote Dr) 750 mg PO BID [facility] Enalapril Maleate (Vasotec) 10 mg PO DAILY [facility] Last Admin: 12/14/17 09:08 Dose: 10 mg Metformin HCl (Glucophage) 500 mg PO BID [facility] Last Admin: 12/14/17 09:08 Dose: 500 mg Pantoprazole Sodium (Protonix Ec Tab) 40 mg PO DAILY [facility] Last Admin: 12/14/17 09:09 Dose: 40 mg - Labs Labs: 12/14/17 08:20 12/14/17 08:20 PT 12.7 SECONDS (9.7-12.2) H 12/11/17 13:31 INR 1.2 12/11/17 13:31 APTT 26 SECONDS (21-34) 12/11/17 13:31 Assessment and Plan - Assessment and Plan (Free Text) Assessment: plan: 1. decrease dilantin by 100 mg po daily. 2. Load with depakote 1000 mg iV now and continue on [address] Thomas
[2017-12-14 08:45] LABS: BASO % 0.5 % (0.0-2.0); EOS # 0.1 K/uL (0.0-0.7); EOS % 2.9 % (0.0-4.0); HEMOGLOBIN 11.8 g/dL (11.0-16.0); LYMPH # 1.5 K/uL (1.0-4.3); LYMPH % 48.2 % (20.0-40.0); MEAN CELL VOLUME 96.4 fL (81.0-99.0); MEAN CORPUSCULAR HGB CONC 34.3 g/dL (33.0-37.0); MEAN PLATELET VOLUME 7.5 fL (7.2-11.7); MONO # 0.3 K/uL (0.0-0.8); MONO % 8.4 % (0.0-10.0); NEUT # 1.3 K/uL (1.8-7.0); NRBC % 0.1 % (0.0-2.0); RBC 3.58 Mil/uL (3.80-5.20); RED CELL DISTRIBUTION WIDTH 14.4 % (11.5-14.5); WHITE BLOOD COUNT 3.2 K/uL (4.8-10.8)
[2017-12-14 08:55] LABS: ALB/GLOB RATIO 1.3 (1.0-2.1); ALBUMIN 3.2 g/dL (3.5-5.0); ALT/SGPT 25 U/L (9-52); AST/SGOT 12 U/L (14-36); BLOOD UREA NITROGEN 14 mg/dL (7-17); CALCIUM 7.6 mg/dl (8.6-10.4); GFR AFRICAN-AMERICAN > 60; GFR NON-AFRICAN AMERICAN > 60
[2017-12-14] MEDS: Pantoprazole 40 mg EC Tab PO SCH (09:09)
[2017-12-14] MEDS ORDERED: Divalproex 500 mg DR Tab PO ONE ×2 (11:00→16:00)
--- NOTE | 2017-12-14 16:04 | CP.PCM.PN ---
Subjective - Date & Time of Evaluation Date of Evaluation: 12/14/17 Time of Evaluation: 10:53 - Subjective Subjective: PGY2 Medicine Note for Dr. Josefina Judd Patient seen and examined this morning at bedside. No acute events overnight. Patient is upset this morning because she was not started on her new seizure medication. She is feeling well and was hoping to be discharged home today. She is AAOx3. Denies fevers, chills, nausea, vomiting, diarrhea, constipation, chest pain, shortness of breath, abdominal pain, numbness or tingling. Objective - Vital Signs/Intake and Output Vital Signs (last 24 hours): Temp Pulse Resp BP Pulse Ox 97.9 F 52 L 20 135/87 100 12/14/17 07:15 12/14/17 11:55 12/14/17 07:15 12/14/17 09:08 12/14/17 07:15 - Medications Medications: Current Medications Aspirin (Aspirin Chewable) 81 mg PO DAILY [facility] Last Admin: 12/14/17 09:09 Dose: 81 mg Divalproex Sodium (Depakote Dr) 500 mg PO ONCE ONE Stop: 12/14/17 16:01 Divalproex Sodium (Depakote Dr) 750 mg PO BID [facility] Enalapril Maleate (Vasotec) 10 mg PO DAILY [facility] Last Admin: 12/14/17 09:08 Dose: 10 mg Metformin HCl (Glucophage) 500 mg PO BID [facility] Last Admin: 12/14/17 09:08 Dose: 500 mg Pantoprazole Sodium (Protonix Ec Tab) 40 mg PO DAILY [facility] Last Admin: 12/14/17 09:09 Dose: 40 mg - Labs Labs: 12/14/17 08:20 12/14/17 08:20 PT 12.7 SECONDS (9.7-12.2) H 12/11/17 13:31 INR 1.2 12/11/17 13:31 APTT 26 SECONDS (21-34) 12/11/17 13:31 Assessment and Plan - Assessment and Plan (Free Text) Plan: - Constitutional Appears: Non-toxic, No Acute Distress - Head Exam Head Exam: ATRAUMATIC, NORMOCEPHALIC - Eye Exam Eye Exam: EOMI, Normal appearance, PERRL Pupil Exam: NORMAL ACCOMODATION, PERRL - ENT Exam ENT Exam: Mucous Membranes Moist - Neck Exam Neck Exam: absent: Lymphadenopathy - Respiratory Exam Respiratory Exam: Clear to Ausculation Bilateral, NORMAL BREATHING PATTERN. absent: Accessory Muscle Use, Rales, Rhonchi, Wheezes, Respiratory Distress - Cardiovascular Exam Cardiovascular Exam: REGULAR RHYTHM, +S1, +S2 - GI/Abdominal Exam GI & Abdominal Exam: Soft, Normal Bowel Sounds. absent: Distended, Firm, Guarding, Rigid, Tenderness - Extremities Exam Extremities Exam: absent: Calf Tenderness, Pedal Edema - Neurological Exam Neurological Exam: Abnormal Gait, Alert, Awake, CN II-XII Intact, Oriented x3. absent: Altered, Motor Sensory Deficit Neuro motor strength exam: Left Upper Extremity: 5, Right Upper Extremity: 5, Left Lower Extremity: 5, Right Lower Extremity: 5 - Psychiatric Exam Psychiatric exam: Normal Affect, Normal Mood - Skin Skin Exam: Dry, Warm Assessment and Plan - Assessment and Plan (Free Text) Plan: Breakthrough Seizure w/ Treatment Neuro Consult: Dr. Calderon --> help appreciated * per neuro note, likely complex partial seizure * EGG: abnormal - shows epileptiform sharp waves. * Brain MRI w/o * Switched patient from Phenytoin to Depakote 750mg PO BID, given loading dose of 1,500mg today. * Will monitor overnight to make sure patient tolerating medication change. Head CT w/o 12/12/17: * No evidence of acute intracranial hemorrhage territorial infarction mass effect or midline shift. Brain MRI w/o 12/12/17: * No evidence of acute pathology in the brain. No evidence of mass lesion mass effect or midline shift. Re- demonstration of well defined cyst at the sella and suprasellar region may represent arachnoid cyst. CXR: No active disease Hgb A1c 5.8 Folate 11.5 Vit B12 887 Lipid Panel HDL 54, LDL 87, Trigly 186 Trop 0.0170 Aspirin 81mg PO daily Seizure Disorder Neuro Consult: Dr. Calderon --> help appreciated Continue home Phenytoin 200mg PO BID Phenytoin Level - 16.7 Hypertension continue home Enalapril Maleate 10mg PO daily continue to monitor DM Type II Hgb A1c 5.8 Accuchecks Metformin 500mg PO BID Prophylactic Care Protonix 40mg PO daily Neurochecks SCDs PT eval and treat DISPO: Will monitor patient overnight to make sure patient tolerates medication change. Possible DC tomorrow. All medical management per Dr. Josefina Khanna Dean PGY2
--- NOTE | 2017-12-14 17:56 | CP.PCM.PN ---
Subjective - Date & Time of Evaluation Date of Evaluation: 12/14/17 Time of Evaluation: 10:15 - Subjective Subjective: clinically same Objective - Vital Signs/Intake and Output Vital Signs (last 24 hours): Temp Pulse Resp BP Pulse Ox 97.8 F 65 20 132/90 97 12/14/17 15:00 12/14/17 16:00 12/14/17 15:00 12/14/17 15:00 12/14/17 15:00 - Medications Medications: Current Medications Aspirin (Aspirin Chewable) 81 mg PO DAILY [facility] Last Admin: 12/14/17 09:09 Dose: 81 mg Divalproex Sodium (Depakote Dr) 750 mg PO BID [facility] Enalapril Maleate (Vasotec) 10 mg PO DAILY [facility] Last Admin: 12/14/17 09:08 Dose: 10 mg Metformin HCl (Glucophage) 500 mg PO BID [facility] Last Admin: 12/14/17 17:49 Dose: Not Given Pantoprazole Sodium (Protonix Ec Tab) 40 mg PO DAILY [facility] Last Admin: 12/14/17 09:09 Dose: 40 mg - Labs Labs: 12/14/17 08:20 12/14/17 08:20 PT 12.7 SECONDS (9.7-12.2) H 12/11/17 13:31 INR 1.2 12/11/17 13:31 APTT 26 SECONDS (21-34) 12/11/17 13:31 - Constitutional Appears: Well - Head Exam Head Exam: ATRAUMATIC, NORMAL INSPECTION, NORMOCEPHALIC - Eye Exam Eye Exam: EOMI, Normal appearance, PERRL Pupil Exam: NORMAL ACCOMODATION, PERRL - ENT Exam ENT Exam: Mucous Membranes Moist, Normal Exam - Neck Exam Neck Exam: Full ROM, Normal Inspection. absent: Lymphadenopathy - Respiratory Exam Respiratory Exam: Decreased Breath Sounds - Cardiovascular Exam Cardiovascular Exam: REGULAR RHYTHM, +S1, +S2 - GI/Abdominal Exam GI & Abdominal Exam: Soft, Diminished Bowel Sounds - Rectal Exam Rectal Exam: Deferred
[2017-12-15 07:55] VITALS: PULSE 57; TEMP 97.9; O2SAT 98
[2017-12-15] MEDS: Pantoprazole 40 mg EC Tab PO SCH (09:34)
[2017-12-15 09:40] VITALS: BP 129/82
[2017-12-15] MEDS ORDERED: Divalproex 250 mg DR Tab PO SCH (10:00)
--- NOTE | 2017-12-15 16:43 | CP.PCM.PN ---
Subjective - Date & Time of Evaluation Date of Evaluation: 12/15/17 Time of Evaluation: 10:20 - Subjective Subjective: PGY2 Medicine Note for Dr. Josefina Judd Patient seen and examined this morning. No acute events overnight. Patient is feeling well and has no complaints. She is tolerating her diet and has no pain at this time. Patient denies any seizure activity. Denies fevers, chills, nausea , vomiting, diarrhea, constipation, chest pain, shortness of breath, abdominal pain, numbness, tingling or focal weakness. Objective - Vital Signs/Intake and Output Vital Signs (last 24 hours): Temp Pulse Resp BP Pulse Ox 97.9 F 57 L 20 129/82 98 12/15/17 07:15 12/15/17 07:15 12/15/17 07:15 12/15/17 09:34 12/15/17 07:15 Intake and Output: 12/15/17 12/15/17 06:59 18:59 Intake Total 480 Balance 480 - Labs Labs: 12/14/17 08:20 12/14/17 08:20 PT 12.7 SECONDS (9.7-12.2) H 12/11/17 13:31 INR 1.2 12/11/17 13:31 APTT 26 SECONDS (21-34) 12/11/17 13:31 Assessment and Plan - Assessment and Plan (Free Text) Plan: - Constitutional Appears: Non-toxic, No Acute Distress - Head Exam Head Exam: ATRAUMATIC, NORMOCEPHALIC - Eye Exam Eye Exam: EOMI, Normal appearance, PERRL Pupil Exam: NORMAL ACCOMODATION, PERRL - ENT Exam ENT Exam: Mucous Membranes Moist - Neck Exam Neck Exam: absent: Lymphadenopathy - Respiratory Exam Respiratory Exam: Clear to Ausculation Bilateral, NORMAL BREATHING PATTERN. absent: Accessory Muscle Use, Rales, Rhonchi, Wheezes, Respiratory Distress - Cardiovascular Exam Cardiovascular Exam: REGULAR RHYTHM, +S1, +S2 - GI/Abdominal Exam GI & Abdominal Exam: Soft, Normal Bowel Sounds. absent: Distended, Firm, Guarding, Rigid, Tenderness - Extremities Exam Extremities Exam: absent: Calf Tenderness, Pedal Edema - Neurological Exam Neurological Exam: Abnormal Gait, Alert, Awake, CN II-XII Intact, Oriented x3. absent: Altered, Motor Sensory Deficit Neuro motor strength exam: Left Upper Extremity: 5, Right Upper Extremity: 5, Left Lower Extremity: 5, Right Lower Extremity: 5 - Psychiatric Exam Psychiatric exam: Normal Affect, Normal Mood - Skin Skin Exam: Dry, Warm Assessment and Plan - Assessment and Plan (Free Text) Plan: Breakthrough Seizure w/ Treatment Neuro Consult: Dr. Calderon --> help appreciated * per neuro note, likely complex partial seizure * EGG: abnormal - shows epileptiform sharp waves. * Brain MRI w/o * Depakote 750mg PO BID * Will monitor overnight to make sure patient tolerating medication change. Head CT w/o 12/12/17: * No evidence of acute intracranial hemorrhage territorial infarction mass effect or midline shift. Brain MRI w/o 12/12/17: * No evidence of acute pathology in the brain. No evidence of mass lesion mass effect or midline shift. Re- demonstration of well defined cyst at the sella and suprasellar region may represent arachnoid cyst. CXR: No active disease Hgb A1c 5.8 Folate 11.5 Vit B12 887 Lipid Panel HDL 54, LDL 87, Trigly 186 Trop 0.0170 Aspirin 81mg PO daily Seizure Disorder Neuro Consult: Dr. Calderon --> help appreciated Continue home Phenytoin 200mg PO BID Phenytoin Level - 16.7 Hypertension continue home Enalapril Maleate 10mg PO daily continue to monitor DM Type II Hgb A1c 5.8 Accuchecks Metformin 500mg PO BID Prophylactic Care Protonix 40mg PO daily Neurochecks SCDs PT eval and treat DISPO: Patient discharged with on 12/15 with the following instructions. Patient is to be discharged home per Dr. Josefina Judd. Patient is to follow up with Dr. Josefina Judd in his office tomorrow, Tuesday, December 16, at 2:00 pm. Patient is to follow up with Dr. Thomas/Dr. Calderon (Neurology) within 1-2 weeks. Please call and schedule an appointment. Patient's medications were changed. Please take as directed. - STOP taking Phenytoin - START taking Depakote 750mg by mouth every 12 hours If patient experiences any new or worsening symptoms, please go directly to the nearest emergency department. All medical management per Dr. Josefina Khanna Dean PGY2
== END 2017-12-15 13:56 | disposition home or self-care (01) | DRG 100 ==
LOC: C.ER 13:19 → C.9E 15:03 → C.5S 15:38 → C.9E 16:08 → C.6T 20:18
PROVIDERS: ADMIT Internal Medicine Nephrology; ATTEND Internal Medicine Nephrology
DX: G40.209 Localization-related (focal) (partial) symptomatic epilepsy and epileptic syndromes with complex partial seizures, not intractable, without status epilepticus (principal); G93.40 Encephalopathy, unspecified; I10 Essential (primary) hypertension; E10.9 Type 1 diabetes mellitus without complications; Z79.4 Long term (current) use of insulin; Z87.891 Personal history of nicotine dependence